=== PATIENT | male | born 1985 | race Caucasian/White ===

== ENCOUNTER 2018-09-08 21:21 | Observation (INO) | payer BC, MEDICAID ==
[~2018-09-08] VITALS: Ht 180.3 cm; Wt 124.9 kg
[~2018-09-08 21:21] MED LIST: AZIT-21 PO; ESCI20TA PO; HYDR-700 PO; LISI-552 PO; LORA0.5T PO; METO-352 PO; SULF1TAB35 PO; TRAM50TA2 PO; TRIA16.5 NS
[2018-09-08] MEDS ORDERED: NITROGLYCERIN 0.4 MG SL TABS BTL 25'S SL ONE (21:29)
[2018-09-08] MEDS ORDERED: ASPIRIN 81 MG CHEW (CHILDREN'S ASA) ONE (21:30)
[2018-09-08 21:39] LABS: BASOPHILS # (AUTO) 0.1 10^3/uL (0.0-0.1); BASOPHILS % (AUTO) 1 % (0-10); EOSINOPHILS # (AUTO) 0.2 10^3/uL (0.0-0.3); EOSINOPHILS % (AUTO) 2 % (0-10); HEMATOCRIT 39 % (40-54); HEMOGLOBIN 12.9 G/DL (13.3-17.7); LYMPHOCYTES # (AUTO) 1.8 X 10^3 (1.0-4.0); LYMPHOCYTES % (AUTO) 17 % (12-44); MEAN CORPUSCULAR HEMOGLOBIN 28 PG (25-34); MEAN CORPUSCULAR HGB CONC 33 G/DL (32-36); MEAN CORPUSCULAR VOLUME 85 FL (80-99); MEAN PLATELET VOLUME 11.4 FL (7.4-10.4); MONOCYTES # (AUTO) 0.4 X 10^3 (0.0-1.0); MONOCYTES % (AUTO) 4 % (0-12); NEUTROPHILS # (AUTO) 7.8 X 10^3 (1.8-7.8); NEUTROPHILS % (AUTO) 76 % (42-75); PLATELET COUNT 291 10^3/uL (130-400); RED CELL DISTRIBUTION WIDTH 13.8 % (10.0-14.5); WHITE BLOOD COUNT 10.3 10^3/uL (4.3-11.0)
--- NOTE | 2018-09-08 21:39 | ED Chest Pain ---
General Chief Complaint: Chest Pain Stated Complaint: CHEST/L SHOULDER/L SIDE NECK PAIN Source: patient, spouse Exam Limitations: no limitations History of Present Illness Date Seen by Provider: Sep 08, 2018 Time Seen by Provider: 21:20 Initial Comments Patient presents to ER by private conveyance with chief complaint of chest pain in his left chest radiating around his left flank into his back as well as up into his left shoulder and left neck. He describes the pain as doubling him over presently an 8 out of 10. He has not taken anything for it and came straight here. He works at [employer] and was not doing anything particular strenuous at the time. He is not short of breath having a cough fever chills nausea sweats. He says he's had a chest pain in the past about a year ago and was diagnosed with panic attacks however he says this pain is much different. Is not worse with movement or direct palpation. He does not have a history of COPD or asthma. He does not smoke cigarettes in the past 2 years however he does smoke marijuana daily and drinks 2-3 times a week usually beer. He denies ever using cocaine or methamphetamines. He says his mother had a heart attack at age 36. He has a history of diabetes diet controlled with metformin as well as a family history of diabetes high blood pressure cholesterol and heart attacks. He said his cholesterol was mildly off so they recommended fish oil but he has an allergy to fish and third diet changes he has improved his numbers. His last A1c was around 6. He denies a history of hypothyroidism. He does have hypertension and also uses escitalopram for anxiety. Uses lisinopril, metformin and metoprolol. He follows with pending sale to [facility] and recently had a change of practitioner so he does not know her name. Allergies and Home Medications Allergies Coded Allergies: Penicillins (Verified Allergy, Unknown, 03/12/12) Home Medications Lisinopril 20 Mg Tablet, 20 MG PO DAILY, (Reported) Metoprolol Succinate 50 Mg Tab.er.24h, 50 MG PO DAILY, (Reported) Sulfamethoxazole/Trimethoprim 1 Each Tablet, 1 EACH PO BID Prescribed by: LULU HAAS on 05/17/151823 Tramadol HCl 50 Mg Tablet, 50 MG PO Q4H PRN for PAIN Prescribed by: LULU HAAS on 05/17/151823 Patient Home Medication List Home Medication List Reviewed: Yes Review of Systems Review of Systems Constitutional: No chills, No diaphoresis EENTM: No Blurred Vision, No Double Vision Respiratory: Denies Cough, Denies Shortness of Air Cardiovascular: See HPI, Chest Pain, Edema (recently been not today); Denies Irregular Heart Rate, Denies Lightheadedness, Denies Palpitations, Denies Syncope Gastrointestinal: Denies Abdominal Pain, Denies Constipated, Denies Diarrhea, Denies Nausea, Denies Poor Fluid Intake Genitourinary: Denies Burning, Denies Discharge Musculoskeletal: No back pain, No joint pain Skin: No pruritus, No rash Psychiatric/Neurological: Denies Headache, Denies Numbness, Denies Paresthesia Past Yftkmpv-Jbumjv-Wdflda Hx Patient Social History Alcohol Use: Denies Use Recreational Drug Use: No Smoking Status: Current Everyday Smoker Recent Foreign Travel: No Contact w/Someone Who Travel: No Immunizations Up To Date Tetanus Booster (TDap): Less than 5yrs Past Medical History Gallbladder Asthma Hypertension Reproductive Disorders: No Sexually Transmitted Disease: No HIV/AIDS: No Hiatal Hernia Hearing Impairment: Hard of Hearing Anxiety Psoriasis Adverse Reaction/Blood Tranf: No Family Medical History No Pertinent Family Hx Physical Exam Vital Signs Vital Signs - First Documented 09/08/18 21:21 Pulse 107 Resp 18 B/P (MAP) 146/81 (102) O2 Delivery Room Air Capillary Refill : Height, Weight, BMI Height: 5'11" Weight: 260lbs. oz. 117.148411ye; 36.26 BMI Method:Stated General Appearance: WD/WN, Anxious, Mild Distress HEENT: PERRL/EOMI, Normal ENT Inspection, Pharynx Normal, Moist Mucous Membranes Neck: Full Range of Motion, Normal Inspection, Non Tender, Supple Respiratory: Chest Non Tender, Lungs Clear, Normal Breath Sounds, No Accessory Muscle Use, No Respiratory Distress Cardiovascular: Regular Rate, Rhythm, No Edema, Normal Peripheral Pulses Gastrointestinal: Normal Bowel Sounds, Non Tender, Soft Extremity: Normal Capillary Refill, Normal Inspection, Normal Range of Motion, Non Tender, No Calf Tenderness, No Pedal Edema Neurologic/Psychiatric: Alert, Oriented x3, No Motor/Sensory Deficits Skin: Normal Color, Warm/Dry Progress/Results/Core Measures Results/Orders Lab Results Laboratory Tests Test 09/08/18 21:28 09/08/18 22:35 Range/Units White Blood Count 10.3 4.3-11.0 10^3/uL Red Blood Count 4.58 4.35-5.85 10^6/uL Hemoglobin 12.9 L 13.3-17.7 G/DL Hematocrit 39 L 40-54 % Mean Corpuscular Volume 85 80-99 FL Mean Corpuscular Hemoglobin 28 25-34 PG Mean Corpuscular Hemoglobin Concent 33 32-36 G/DL Red Cell Distribution Width 13.8 10.0-14.5 % Platelet Count 291 130-400 10^3/uL Mean Platelet Volume 11.4 H 7.4-10.4 FL Neutrophils (%) (Auto) 76 H 42-75 % Lymphocytes (%) (Auto) 17 12-44 % Monocytes (%) (Auto) 4 0-12 % Eosinophils (%) (Auto) 2 0-10 % Basophils (%) (Auto) 1 0-10 % Neutrophils # (Auto) 7.8 1.8-7.8 X 10^3 Lymphocytes # (Auto) 1.8 1.0-4.0 X 10^3 Monocytes # (Auto) 0.4 0.0-1.0 X 10^3 Eosinophils # (Auto) 0.2 0.0-0.3 10^3/uL Basophils # (Auto) 0.1 0.0-0.1 10^3/uL Prothrombin Time 13.0 12.2-14.7 SEC INR Comment 1.0 0.8-1.4 Activated Partial Thromboplast Time 30 24-35 SEC D-Dimer 0.64 H 0.00-0.49 UG/ML Sodium Level 138 135-145 MMOL/L Potassium Level 3.5 L 3.6-5.0 MMOL/L Chloride Level 105 98-107 MMOL/L Carbon Dioxide Level 20 L 21-32 MMOL/L Anion Gap 13 5-14 MMOL/L Blood Urea Nitrogen 10 7-18 MG/DL Creatinine 0.93 0.60-1.30 MG/DL Estimat Glomerular Filtration Rate > 60 BUN/Creatinine Ratio 11 Glucose Level 131 H 70-105 MG/DL Calcium Level 8.8 8.5-10.1 MG/DL Corrected Calcium 8.7 8.5-10.1 MG/DL Magnesium Level 2.2 1.8-2.4 MG/DL Total Bilirubin 0.3 0.1-1.0 MG/DL Aspartate Amino Transf (AST/SGOT) 22 5-34 U/L Alanine Aminotransferase (ALT/SGPT) 19 0-55 U/L Alkaline Phosphatase 107 40-136 U/L Myoglobin 72.8 10.0-92.0 NG/ML Troponin I < 0.028 <0.028 NG/ML B-Type Natriuretic Peptide 21.7 <100.0 PG/ML Total Protein 7.4 6.4-8.2 GM/DL Albumin 4.1 3.2-4.5 GM/DL Lipase 40 8-78 U/L Urine Color YELLOW Urine Clarity CLEAR Urine pH 5 5-9 Urine Specific [place] 1.020 1.016-1.022 Urine Protein 1+ H NEGATIVE Urine Glucose (UA) NEGATIVE NEGATIVE Urine Ketones NEGATIVE NEGATIVE Urine Nitrite NEGATIVE NEGATIVE Urine Bilirubin NEGATIVE NEGATIVE Urine Urobilinogen NORMAL NORMAL MG/DL Urine Leukocyte Esterase NEGATIVE NEGATIVE Urine RBC (Auto) NEGATIVE NEGATIVE Urine RBC NONE /HPF Urine WBC RARE /HPF Urine Squamous Epithelial Cells RARE /HPF Urine Crystals NONE /LPF Urine Bacteria TRACE /HPF Urine Casts NONE /LPF Urine Mucus MODERATE H /LPF Urine Culture Indicated NO Urine Opiates Screen NEGATIVE NEGATIVE Urine Oxycodone Screen NEGATIVE NEGATIVE Urine Methadone Screen NEGATIVE NEGATIVE Urine Propoxyphene Screen NEGATIVE NEGATIVE Urine Barbiturates Screen NEGATIVE NEGATIVE Ur Tricyclic Antidepressants Screen NEGATIVE NEGATIVE Urine Phencyclidine Screen NEGATIVE NEGATIVE Urine Amphetamines Screen NEGATIVE NEGATIVE Urine Methamphetamines Screen NEGATIVE NEGATIVE Urine Benzodiazepines Screen NEGATIVE NEGATIVE Urine Cocaine Screen NEGATIVE NEGATIVE Urine Cannabinoids Screen POSITIVE H NEGATIVE My Orders Orders - SELENA,ALY J Ekg Tracing (09/08/18 21:24) Continuous Ekg Monitoring (09/08/18 21:24) Cbc With Automated Diff (09/08/18 21:32) Magnesium (09/08/18 21:32) Chest 1 View, Ap/Pa Only (09/08/18 21:32) Cardiac Profile 1 (09/08/18 21:32) Comprehensive Metabolic Panel (09/08/18 21:32) Myoglobin Serum (09/08/18 21:32) Protime With Inr (09/08/18 21:32) Partial Thromboplastin Time (09/08/18 21:32) O2 (09/08/18 21:32) Lipid Panel (09/09/18 06:00) Ed Iv/Invasive Line Start (09/08/18 21:32) Lipase (09/08/18 21:32) BNP (09/08/18 21:32) Fibrin Degradation Products (09/08/18 21:32) Nitroglycerin 0.4 Mg Btl 25's (Nitrostat (09/08/18 21:45) Aspirin Chewable Tablet (Baby Aspirin Ch (09/08/18 21:45) Nitroglycerin 0.4 Mg Btl 25's (Nitrostat (09/08/18 21:29) Aspirin Chewable Tablet (Baby Aspirin Ch (09/08/18 21:30) Ua Culture If Indicated (09/08/18 21:45) Drug Screen Stat (Urine) (09/08/18 21:45) Ct Angio Chest W (09/08/18 22:32) Ed Iv/Invasive Line Start (09/08/18 22:32) Ns Iv 1000 Ml (Sodium Chloride 0.9%) (09/08/18 22:32) Iohexol Injection (Omnipaque 350 Mg/Ml 1 (09/08/18 23:15) Received Contrast (Hold Metformin- Contr (09/08/18 23:15) Ns (Ivpb) (Sodium Chloride 0.9% Ivpb Bag (09/08/18 23:15) Medications Given in ED Current Medications Medications Dose Ordered Sig/Katherine Route Start Time Stop Time Status Last Admin Dose Admin Aspirin 324 mg ONCE ONCE PO 09/08/18 21:45 09/08/18 21:46 DC 09/08/18 21:34 324 MG Iohexol 150 ml ONCE ONCE IV 09/08/18 23:15 09/08/18 23:16 DC 09/08/18 23:10 125 ML Nitroglycerin 0.4 mg UD PRN SL 09/08/18 21:45 09/08/18 21:36 0.4 MG Sodium Chloride 100 ml ONCE ONCE IV 09/08/18 23:15 09/08/18 23:16 DC 09/08/18 23:10 80 ML Vital Signs/I&O 09/08/18 09/08/18 21:21 21:21 Pulse 107 Resp 18 B/P (MAP) 146/81 (102) O2 Delivery Room Air Progress Progress Note #1: Time: 21:41 Progress Note Initial blood pressure is 130 systolic and after a syncopal dose of nitroglycerin he says he can breathe better and his pain is significantly decreased. He feels more relaxed. EKG is non-diagnostic. He has a concerning family history and risk factors of smoking, hypertension, hyperlipidemia, diabetes. Plan urine drug screen. Echocardiogram by Dr. Lemus January 2015. Normal ventricular size and systolic function. EF of 60%. Slightly prominent left atrium. ED ACS 17 points. Not low risk. This patient is not a candidate for early discharge and should receive a standard chest pain evaluation with delayed troponin testing. Progress Note #2: Time: 22:33 Progress Note Single dose of nitroglycerin almost completely took his chest pain away. He was feeling some gas pain in the middle of his chest he said like a gas bubble in his throat. We'll get a CT angiogram since his d-dimer failed to rule out pulmonary embolism and we may offer him a GI cocktail if this esophageal discomfort persists. Initial ECG Impression Date: Sep 08, 2018 Initial ECG Impression Time: 21:26 Initial ECG Rate: 100 Initial ECG Rhythm: S.Tach Initial ECG Intervals: Normal Initial ECG Impression: Normal, Nonspecific Changes Comment No clinically significant ST elevation or depression. Diagnostic Imaging Diagonstic Imaging: Xray Plain Films/CT/US/NM/MRI: chest (1v) Comments NAME: GAMAL HARGROVE [facility] REC#: [id number] PHYSICIAN: ALY WALTERS MD CC: MARTIN DENNEY MD; ALY WALTERS Page 1 of 1 RADIOLOGY REPORT [facility] [place] CC: MARTIN DENNEY MD; ALY WALTERS Page 1 of 1 RADIOLOGY REPORT NAME: GAMAL HARGROVE [facility] REC#: [id number] PT STATUS: REG ER : 1985 PHYSICIAN: ALY WALTERS MD ADMIT DATE: 09/08/18/ER Signed Date of Exam: 09/08/18 CHEST 1 VIEW, AP/PA ONLY INDICATION: Left upper chest pain for the last couple of hours. COMPARISON STUDY: Chest from 2015. FINDINGS: Frontal view of the chest demonstrates the lungs to be clear. The heart, mediastinum, pulmonary vascularity and visualized bony thorax are normal. IMPRESSION: Normal portable chest. Dictated by: Dictated on workstation # [id number] Dict: 09/08/182146 Trans: 09/08/182199 Interpreted by: MARTIN DENNEY MD Electronically signed by: MARTIN DENNEY MD 09/08/182199 Reviewed: Reviewed by Me Diagonstic Imaging: CT (angiogram) Plain Films/CT/US/NM/MRI: chest Comments Negative for pulmonary embolism infiltrate or mass. No aortic aneurysm. Left renal stone. Reviewed: Reviewed by Me Departure Communication (Admissions) Time/Spoke to Admitting Phy: 00:15 Dr Arzate agrees to observe. Time/Spoke to Consulting Phy: 00:10 Dr Clayton; Agrees to consult, continue metoprolol and ASA. Impression Primary Impression: Left-sided chest pain Disposition: ADMITTED INPATIENT Condition: Stable Admissions Decision to Admit Reason: Admit from ER (General) Decision to Admit/Date: Sep 08, 2018 Time/Decision to Admit Time: 21:45 Departure-Patient Inst. Referrals: [facility] (PCP/Family) Primary Care Physician ALY WALTERS Sep 08, 2018 21:39
[2018-09-08] MEDS ORDERED: NITROGLYCERIN 0.4 MG SL TABS BTL 25'S SL PRN (21:45)
[2018-09-08] MEDS ORDERED: ASPIRIN 81 MG CHEW (CHILDREN'S ASA) PO ONE (21:45)
--- NOTE | 2018-09-08 21:52 | Diagnostic Imaging Report ---
INDICATION: Left upper chest pain for the last couple of hours. COMPARISON STUDY: Chest from 2015. FINDINGS: Frontal view of the chest demonstrates the lungs to be clear. The heart, mediastinum, pulmonary vascularity and visualized bony thorax are normal. IMPRESSION: Normal portable chest. Dictated by: Dictated on workstation # [id number]
[2018-09-08 21:59] LABS: ALANINE AMINOTRANSFERASE 19 U/L (0-55); ALBUMIN 4.1 GM/DL (3.2-4.5); ALKALINE PHOSPHATASE 107 U/L (40-136); BILIRUBIN,TOTAL 0.3 MG/DL (0.1-1.0); BUN/CREATININE RATIO 11; CALCIUM 8.8 MG/DL (8.5-10.1); CARBON DIOXIDE 20 MMOL/L (21-32); CHLORIDE 105 MMOL/L (98-107); CREATININE SERUM 0.93 MG/DL (0.60-1.30); GFR ESTIMATED > 60; GLUCOSE 131 MG/DL (70-105); LIPASE 40 U/L (8-78); MAGNESIUM 2.2 MG/DL (1.8-2.4); POTASSIUM 3.5 MMOL/L (3.6-5.0); SODIUM 138 MMOL/L (135-145); TOTAL PROTEIN 7.4 GM/DL (6.4-8.2)
[2018-09-08] MEDS ORDERED: NS IV 1000 ML 1,000 ML IV SCH (22:32)
[2018-09-08 22:41] LABS: BILIRUBIN,URINE NEGATIVE (NEGATIVE); CLARITY,URINE CLEAR; GLUCOSE, URINE (UA) NEGATIVE (NEGATIVE); KETONES,URINE NEGATIVE (NEGATIVE); LEUKOCYTE ESTERASE ,URINE NEGATIVE (NEGATIVE); NITRITE,URINE NEGATIVE (NEGATIVE); PH,URINE 5 (5-9); PROTEIN,URINE 1+ (NEGATIVE); UROBILINOGEN,URINE NORMAL (NORMAL)
[2018-09-08 22:47] LABS: COLOR,URINE YELLOW
[2018-09-08 22:48] LABS: BACTERIA,URINE TRACE /HPF; SQUAMOUS EPITHELIAL CELL,UR RARE /HPF; WBC,URINE RARE /HPF
[2018-09-08 22:54] LABS: AMPHETAMINE SCREEN, URINE NEGATIVE (NEGATIVE); BARBITURATE SCREEN URINE NEGATIVE (NEGATIVE); BENZODIAZEPINES SCREEN URINE NEGATIVE (NEGATIVE); CANNABINOID SCREEN, URINE POSITIVE (NEGATIVE); COCAINE SCREEN URINE NEGATIVE (NEGATIVE); METHADONE STAT NEGATIVE (NEGATIVE); METHAMPHETAMINE SCREEN URINE S NEGATIVE (NEGATIVE); OPIATE SCREEN URINE NEGATIVE (NEGATIVE); OXYCODONE STAT NEGATIVE (NEGATIVE); PROPOXYPHENE STAT NEGATIVE (NEGATIVE); TRICYCLIC ANTIDEPRESSANTS SCRE NEGATIVE (NEGATIVE)
[2018-09-08] MEDS ORDERED: HOLD METFORMIN - RECEIVED CONTRAST 20 ML VIAL IV SCH (23:15)
[2018-09-08] MEDS ORDERED: NS 100 ML (IVPB) BAG IV ONE (23:15)
[2018-09-08] MEDS ORDERED: IOHEXOL 350 MG/ML 150 ML (OMNIPAQUE 350) VIAL IV ONE (23:15)
[2018-09-09] VITALS (10 sets, daily range): BP systolic 120–145; BP diastolic 64–87
--- NOTE | 2018-09-09 01:00 | NUR ---
GAMAL HARGROVE admitted to room 418-1, with an admitting diagnosis of CHEST PAIN R/O ACS, on 09/09/18 from ER VIA WHEELCHAIR, accompanied by STAFF.GAMAL HARGROVE introduced to surroundings, call light, bed controls, phone, TV, temperature control, lights, meal times, smoking policy, visitor policy, side rail policy, bathrooms and showers. Patient Rights given to patient in the handbook.GAMAL HARGROVE verbalizes understanding that [facility] is not responsible for the loss or damage to any personal effects or valuables that are kept in the patients posession during their hospitalization.
[2018-09-09] MEDS ORDERED: NITROGLYCERIN 0.4 MG SL TABS BTL 25'S SL PRN (01:15)
[2018-09-09] MEDS ORDERED: PATIENT MAY USE OWN MEDS, ALL PO SCH (01:15)
[2018-09-09] MEDS ORDERED: CATHETER FLUSH 10 ML SYR IV PRN (01:15)
[2018-09-09] MEDS ORDERED: morphine INJ 4 MG/ML 1 ML (VIAL/SYRINGE) IV PRN (01:15)
[2018-09-09] MEDS: CATHETER FLUSH 10 ML SYR IV SCH ×2 (05:03→14:55)
--- NOTE | 2018-09-09 06:16 | Diagnostic Imaging Report ---
PROCEDURE: CT angiography of the chest with contrast. TECHNIQUE: Multiple contiguous axial images were obtained through the chest after uneventful bolus administration of intravenous contrast. 2D reconstructed CTA MIP acquisitions were also performed. Auto Exposure Controls were utilized during the CT exam to meet ALARA standards for radiation dose reduction. Indication: Upper left chest pain for 2 hours. Comparison: None. Discussion: No pulmonary embolus is identified. No focal consolidation. Normal heart size. No pleural or pericardial fluid. No pathologically enlarged lymph nodes identified. The gallbladder surgically absent. A 2 mm nonobstructing left renal calculus. No osseous abnormality. The thoracic aorta is normal in caliber and configuration. Pulmonary arteries are not dilated. Impression: 1. No pulmonary embolus or other acute abnormality identified within the chest. 2. Nonobstructing punctate left renal calculus. 3. Agree with preliminary report. Dictated by: Dictated on workstation # [id number]
[2018-09-09 08:29] LABS: TRIGLYCERIDES 353 MG/DL (<150)
[2018-09-09 08:30] LABS: CHOLESTEROL 121 MG/DL (< 200); HDL CHOLESTEROL 20 MG/DL (40-60); VLDL CHOLESTEROL 71 MG/DL (5-40)
[2018-09-09] MEDS ORDERED: meTOprolol TARTRATE 50 MG (LOPRESSOR) TAB PO SCH (09:00)
[2018-09-09] MEDS ORDERED: lisINopril 20 MG (PRINIVIL) TABLET PO SCH (09:00)
[2018-09-09] MEDS ORDERED: ASPIRIN E.C. 81 MG (ECOTRIN) TAB PO SCH (09:00)
[2018-09-09] MEDS ORDERED: PATIENT MAY USE OWN MEDS, ALL MC SCH (09:45)
[2018-09-09] MEDS ORDERED: ESCITALOPRAM 20 MG (LEXAPRO) TABLET PO SCH (10:15)
--- NOTE | 2018-09-09 12:37 | Short Stay Summary-Hospitalist ---
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 His family history is significant for a mother having an UT at 36 years old. He denied any significant additional chest pain and cardiology has been consulted. He was noted to have decreased oxygen saturation at night when spot checked when taken vitals per nursing staff and I have consulted Dr. Davis and home O2 evaluation was performed the patient did not require any home oxygen at this time but does need a sleep study as an outpatient since he appears to be high risk for that. All cardiac enzymes were negative and patient will have a close follow-up with cardiology to complete the work-up for chest pain. Source: patient, family, RN/MD Exam Limitations: no limitations Date Seen 09/09/18 Time Seen by a Provider: 10:30 Attending Physician Cayla Arzate DO [facility] [place] Referring Physician Date of Admission Sep 09, 2018 at 00:20 Home Medications & Allergies Home Medications Reviewed patient Home Medication Reconciliation performed by pharmacy medication reconciliations aviation electronics technician and/or nursing. Patients Allergies have been reviewed. Allergies Allergies Coded Allergies Penicillins (Verified Allergy, Unknown, 03/12/12) Past Cltdbpc-Nxtrog-Jrpjvr Hx Past Med/Social Hx: Reviewed Nursing Past Med/Soc Hx, Reviewed and Corrections made Patient Social History Marrital Status: Employed/Student: employed ([employer]) Alcohol Use: Denies Use Recreational Drug Use: No Drug of Choice: MARIJUANA Smoking Status: Current Everyday Smoker Type Used: Cigarettes Recent Foreign Travel: No Contact w/other who traveled: No Recent Hopitalizations: No Recent Infectious Disease Expo: No Immunizations Up To Date Tetanus Booster (TDap): Less than 5yrs Seasonal Allergies Seasonal Allergies: No Past Medical History Surgeries: Gallbladder Cardiac: High Cholesterol, Hypertension Reproductive: No Sexually Transmitted Disease: No HIV/AIDS: No Gastrointestinal: Hiatal Hernia Endocrine: Diabetes, Non-Insulin dep Hearing Impairment: Hard of Hearing Psychosocial: Anxiety Skin/Integumentary: Psoriasis History of Blood Disorders: No Adverse Reaction to Blood [place]: No Family History No Pertinent Family Hx Review of Systems Constitutional: see HPI EENTM: no symptoms reported Respiratory: no symptoms reported Cardiovascular: chest pain Physical Exam Physical Exam Vital Signs Vital Signs - First Documented 09/08/18 09/09/18 21:21 07:00 Pulse 107 Resp 18 B/P (MAP) 146/81 (102) O2 Delivery Room Air O2 Flow Rate 1.00 Capillary Refill : Less Than 3 Seconds Height, Weight, BMI Height: 5'11.00" Weight: 275lbs. 6.0oz. 124.921147zy; 38.4 BMI Method:Stated General Appearance: No Apparent Distress, WD/WN, Anxious, Chronically ill, Obese HEENT: PERRL/EOMI, Normal ENT Inspection, Pharynx Normal, Moist Mucous Membranes Neck: Full Range of Motion, Normal Inspection, Non Tender, Supple Respiratory: Chest Non Tender, Lungs Clear, Normal Breath Sounds, No Accessory Muscle Use, No Respiratory Distress Cardiovascular: Regular Rate, Rhythm, No Edema, Normal Peripheral Pulses Gastrointestinal: Normal Bowel Sounds, Non Tender, Soft Extremity: Normal Capillary Refill, Normal Inspection, Normal Range of Motion, Non Tender, No Calf Tenderness, No Pedal Edema Neurologic/Psychiatric: Alert, Oriented x3, No Motor/Sensory Deficits Skin: Normal Color, Warm/Dry Results Results/Procedures Labs Laboratory Tests 09/08/18 21:28 Patient resulted labs reviewed. Short Stay Diagnosis Discharge Diagnosis-Short Stay Admission Diagnosis Assessment: Chest pain ruled out acute coronary syndrome needs close follow-up with cardiology to complete work-up Suspected obstructive sleep apnea with desaturations at night when spot checked Obesity Hypertension Hyperlipidemia Hypokalemia Former smoker Final Discharge Diagnosis Assessment: Chest pain ruled out acute coronary syndrome needs close follow-up with cardiology to complete work-up Suspected obstructive sleep apnea with desaturations at night when spot checked Obesity Hypertension Hyperlipidemia Hypokalemia Former smoker Conclusion Plan Plan: VT home Needs sleep study and completed ACS w/u Diagnosis/Problems Diagnosis/Problems (1) Chest pain, rule out acute myocardial infarction Status: Acute (2) Obesity (BMI 30-39.9) Status: Chronic (3) Hypertension Status: Chronic Qualifiers: Qualified Codes: I10 - Essential (primary) hypertension (4) Diabetes mellitus Status: Chronic Qualifiers: Qualified Codes: E11.9 - Type 2 diabetes mellitus without complications (5) Former smoker Status: Chronic (6) Other hyperlipidemia Status: Chronic Clinical Quality Measures AMI/AHF: ASA po Prior to arrival: No DVT/VTE Risk/Contraindication: Risk Factor Score Per Nursin RFS Level Per Nursing on Admit: 2=Moderate CAYLA ARZATE DO Sep 09, 2018 12:37
[2018-09-09] MEDS ORDERED: KCL 20 MEQ TAB (K-DUR) PO ONE (14:00)
[2018-09-09] MEDS ORDERED: ATOR20TA66 PO (14:01)
--- NOTE | 2018-09-09 14:14 | Consultation-Cardiology ---
HPI-Cardiology Cardiology Consultation: Date of Consultation 09/09/18 Time Seen by a Provider: 13:40 Date of Admission Attending Physician Cayla Arzate DO Admitting Physician [facility] Consulting Physician BERTA MCMILLAN MD, MA, FACP, FACC, [facility], CCDS Physician requesting consult: Dr Arzate HPI: Chief Complaint: CC: Chest discomfort HPI [address] to Dr Arzate on 09/08/18 with chest discomfort: first episode, none previously, felt in L upper chest, some radiation to back of neck, no corre lation with exertion, sharp to dull, mild to mod, associated with a feeling of panic, lasted a few hours, has resolved, has not recurred. Chronic, mild shortness of breath Chronic panic and anxiety disorder No palp or syncope No leg swelling Review of Systems-Cardiology Review of Systems Constitutional: malaise; No weight loss, No weight gain Eyes: No vision change Ears/Nose/Throat: No ear discharge, No nasal drainage, No recent hearing loss Respiratory: As described under HPI Cardiovascular: As described under HPI Gastrointestinal: No constipation, No diarrhea, No nausea Genitourinary: No dysuria, No hematuria, No urine frequency changes Musculoskeletal: No back pain, No joint pain Skin: No rash, No ulcerations Psychiatric/Neurological: No seizure, No focal weakness, No syncope Hematologic: No bleeding abnormalities COS-Gqolgm-Lgitzg Hx Patient Social History Alcohol Use: Denies Use Recreational Drug Use: No Drug of Choice: MARIJUANA Smoking Status: Current Everyday Smoker Type Used: Cigarettes Recent Foreign Travel: No Recent Infectious Disease Expo: No Hospitalization with Isolation: Denies Immunizations Up To Date Tetanus Booster (TDap): Less than 5yrs Past Medical History PMH As described under Assessment. Family Medical History Family Medical History: Reports mother had DC at age 36 Allergies and Home Medications Allergies Coded Allergies: Penicillins (Verified Allergy, Unknown, 03/12/12) Home Medications Atorvastatin Calcium 20 Mg Tablet, 20 MG PO DAILY Prescribed by: BERTA MCMILLAN on 09/09/18 1401 Lisinopril 20 Mg Tablet, 20 MG PO DAILY, (Reported) Metoprolol Succinate 50 Mg Tab.er.24h, 50 MG PO DAILY, (Reported) Sulfamethoxazole/Trimethoprim 1 Each Tablet, 1 EACH PO BID Prescribed by: LULU HAAS on 05/17/15 1824 Tramadol HCl 50 Mg Tablet, 50 MG PO Q4H PRN for PAIN Prescribed by: LULU HAAS on 05/17/15 0151 Patient Home Medication List Home Medication List Reviewed: Yes Physical Exam-Cardiology Physical Exam Vital Signs/I&O 09/09/18 09/09/18 09/09/18 09/09/18 02:08 03:00 04:00 05:00 Temp 99.1 Pulse 83 88 76 77 Resp 18 18 18 B/P (MAP) 133/76 (95) 145/76 (99) 120/64 (82) Pulse Ox 92 89 O2 Delivery Room Air Room Air Room Air 09/09/18 09/09/18 09/09/18 09/09/18 06:00 07:00 08:00 08:00 Temp 99.4 Pulse 78 70 74 Resp 18 20 B/P (MAP) 129/72 (91) 123/77 (92) Pulse Ox 5 96 96 O2 Delivery Room Air Room Air Room Air 09/09/18 09/09/18 12:00 13:00 Temp 98.8 Pulse 62 62 Resp 20 B/P (MAP) 142/87 (105) Pulse Ox 97 O2 Delivery Room Air 09/09/18 00:00 Intake Total 1000 ml Balance 1000 ml Capillary Refill : Less Than 3 SecondsLess Than 3 Seconds Constitutional: AAO x 3, well-developed, well-nourished HEENT: EOMI, hearing is well preserved; No xanthelasmas are seen Neck: carotid pulses are 2 + bilaterally, with good upstrokes Respiratory: No accessory muscle use; lungs clear to percussion, lungs clear to auscultation Cardiovascular: regular rate-rhythm, S1 and S2 Gastrointestinal: No tender; soft; No guarding, No rebound; audible bowel sounds Extremities: No clubbing, No cyanosis, No significant edema Neurologic/Psychiatric: oriented x 3, other (moves all limbs equally) Skin: No rash on exposed areas, No ulcerations on exposed areas Data Review Labs Laboratory Tests 09/08/18 21:28: White Blood Count 10.3, Red Blood Count 4.58, Hemoglobin 12.9L, Hematocrit 39L, Mean Corpuscular Volume 85, Mean Corpuscular Hemoglobin 28, Mean Corpuscular Hemoglobin Concent 33, Red Cell Distribution Width 13.8, Platelet Count 291, Mean Platelet Volume 11.4H, Neutrophils (%) (Auto) 76H, Lymphocytes (%) (Auto) 17, Monocytes (%) (Auto) 4, Eosinophils (%) (Auto) 2, Basophils (%) (Auto) 1, Neutrophils # (Auto) 7.8, Lymphocytes # (Auto) 1.8, Monocytes # (Auto) 0.4, Eosinophils # (Auto) 0.2, Basophils # (Auto) 0.1, Prothrombin Time 13.0, INR Comment 1.0, Activated Partial Thromboplast Time 30, D-Dimer 0.64H, Sodium Level 138, Potassium Level 3.5L, Chloride Level 105, Carbon Dioxide Level 20L, Anion Gap 13, Blood Urea Nitrogen 10, Creatinine 0.93, Estimat Glomerular Filtration Rate > 60, BUN/Creatinine Ratio 11, Glucose Level 131H, Calcium Level 8.8, Corrected Calcium 8.7, Magnesium Level 2.2, Total Bilirubin 0.3, Aspartate Amino Transf (AST/SGOT) 22, Alanine Aminotransferase (ALT/SGPT) 19, Alkaline Phosphatase 107, Myoglobin 72.8, Troponin I < 0.028, B-Type Natriuretic Peptide 21.7, Total Protein 7.4, Albumin 4.1, Lipase 40 09/08/18 22:35: Urine Color YELLOW, Urine Clarity CLEAR, Urine pH 5, Urine Specific [place] 1.020, Urine Protein 1+H, Urine Glucose (UA) NEGATIVE, Urine Ketones NEGATIVE, Urine Nitrite NEGATIVE, Urine Bilirubin NEGATIVE, Urine Urobilinogen NORMAL, Urine Leukocyte Esterase NEGATIVE, Urine RBC (Auto) NEGATIVE, Urine RBC NONE, Urine WBC RARE, Urine Squamous Epithelial Cells RARE, Urine Crystals NONE, Urine Bacteria TRACE, Urine Casts NONE, Urine Mucus MODERATEH, Urine Culture Indicated NO, Urine Opiates Screen NEGATIVE, Urine Oxycodone Screen NEGATIVE, Urine Methadone Screen NEGATIVE, Urine Propoxyphene Screen NEGATIVE, Urine Barbiturates Screen NEGATIVE, Ur Tricyclic Antidepressants Screen NEGATIVE, Urine Phencyclidine Screen NEGATIVE, Urine Amphetamines Screen NEGATIVE, Urine Methamphetamines Screen NEGATIVE, Urine Benzodiazepines Screen NEGATIVE, Urine Cocaine Screen NEGATIVE, Urine Cannabinoids Screen POSITIVEH 09/09/18 02:01: Troponin I < 0.028 09/09/18 05:30: Glucometer 116H 09/09/18 08:05: Troponin I < 0.028, Triglycerides Level 353H, Cholesterol Level 121, LDL Cholesterol Direct 44, VLDL Cholesterol 71H, HDL Cholesterol 20L 09/09/18 11:01: Glucometer 100 Laboratory Tests 09/08/18 21:28 A/P-Cardiology Assessment/Admission Diagnosis Nonspecific chest discomfort, etiology undetermined, no evidence of ACS Borderline DM II, by history Borderline hypertension, by history Hyperlipidemia, mostly hypertriglyceridemia Obesity with BMI 38 Quit smoking in 2011 Discussion and Recomendations * Ok to d/c because no evidence of ACS and because he wishes to go home * Cor risk stratification as an outpt (given multiple coronary risk factors) * Supplemental K because K somewhat low at presentation * Add atorvastatin for hyperlipidemia. Pros and cons of statin therapy reviewed with him. Advised f/u lab work in 4-6 weeks and outpt f/u * Advised to continue to refrain from tobacco use * Advised efforts at wgt loss * He understands all of the above and states he will comply Clinical Quality Measures AMI/AHF: ASA po Prior to arrival: No DVT/VTE Risk/Contraindication: Risk Factor Score Per Nursin RFS Level Per Nursing on Admit: 2=Moderate BERTA MCMILLAN MD FACP FACC CCDS Sep 09, 2018 14:14
--- NOTE | 2018-09-09 16:58 | NUR ---
Patient was on RA for over 60 mins and then O2 sat was checked and patient was at 97%; Patient stood up and was still 97% and walked for 6 mins and did not drop below 98% during the 6 mins walk. Patient is not requiring O2 at rest or on exertion at this time
[2018-09-09] MEDS ORDERED: ATORVASTATIN 40 MG (LIPITOR) TABLET PO SCH (21:00)
== END 2018-09-09 17:25 | disposition home or self-care (01) ==
LOC: EDUNIT# 21:21 → ER 21:21 → 4TH 09-09 00:20
PROVIDERS: ADMIT Internal Medicine; ATTEND Internal Medicine
DX: R07.9 Chest pain, unspecified (principal); E11.9 Type 2 diabetes mellitus without complications; E78.5 Hyperlipidemia, unspecified; E78.1 Pure hyperglyceridemia; E66.9 Obesity, unspecified; Z68.38 Body mass index [BMI] 38.0-38.9, adult; I10 Essential (primary) hypertension; E78.00 Pure hypercholesterolemia, unspecified; H91.90 Unspecified hearing loss, unspecified ear; F41.9 Anxiety disorder, unspecified; L40.9 Psoriasis, unspecified; E87.6 Hypokalemia; Z87.891 Personal history of nicotine dependence; Z79.84 Long term (current) use of oral hypoglycemic drugs; Z82.49 Family history of ischemic heart disease and other diseases of the circulatory system
CPT/HCPCS: 36415; 71045; 71275; 80053; 80061; 80306; 81000; 82962; 83690; 83735; 83874; 83880; 84484; 85025; 85379; 85610; 85730; 93005; 94761; 96360; G0378

== ENCOUNTER → 2018-09-11 | Outpatient (CLI) | payer BC ==
[~2018-09-11] MED LIST changes: +ATOR20TA66 PO; +CATHETER FLUSH 10 ML SYR IV PRN
[2018-09-11 09:09] VITALS: BP 137/80
[2018-09-11 09:13] VITALS: BP 142/71
--- NOTE | 2018-09-12 02:39 | STRESS TEST ---
DATE OF SERVICE: 09/11/2018 RESTING AND POST EXERCISE TECHNETIUM-99M TETROFOSMIN SPECT CT IMAGING ORDERING PHYSICIAN: Dr. Clayton. PRIMARY PHYSICIAN: [facility]. CLINICAL DIAGNOSIS: Chest pain. Baseline images were carried out after injection of 10.35 mCi of technetium-99m Tetrofosmin. Subsequently, exercise was carried out on a treadmill. Lauri protocol was employed. Heart rate response to exercise was normal. Blood pressure response to exercise was hypertensive. There was considerable baseline artifact with exercise. There did not appear to be significant ST segment deviation in the immediate recovery phase. The patient exercised for a total of 10 minutes and 30 seconds on the Lauri protocol. He attained 11.5 METS of workload and 86% of maximum predicted heart rate. After he had indicated that he would not be able for go for more than another minute, 29.7 mCi of technetium-99m Tetrofosmin were injected and the exercise was continued for another minute. He did not report chest discomfort. Exercise was stopped on account of fatigue. Review of images at rest and following stress does not indicate any significant perfusion defects consistent with significant myocardial ischemia or infarction. Gated images show normal global left ventricular systolic function with normal regional wall motion. Left ventricular ejection fraction is calculated to be 61%. TID is absent (1.03). CONCLUSIONS: 1. No evidence of any significant myocardial ischemia or infarction on this study. 2. Normal regional wall motion. 3. Normal global left ventricular systolic function with an ejection fraction of 61%. 4. Hypertensive response to exercise. Job ID: [id number] DocumentID: [id number] Dictated Date: 09/11/2018 21:46:38 Cmo & President Date: 09/12/2018 02:38:53 Dictated By: BERTA CLAYTON MD, MA, FACP, FACC,
== END ==
LOC: CARD 07:33
PROVIDERS: ATTEND Internal Medicine
DX: R07.9 Chest pain, unspecified (principal); R03.0 Elevated blood-pressure reading, without diagnosis of hypertension
CPT/HCPCS: 78452; 93017; 93306

== ENCOUNTER → 2018-09-25 | Outpatient (CLI) | payer BC ==
[~2018-09-25] MED LIST changes: -CATHETER FLUSH 10 ML SYR IV PRN
[2018-09-25 09:39] LABS: ABG BASE EXCESS 0.1 MMOL/L (-2.5-2.5); ABG OXYGEN SATURATION 98 % (94-100); ABG PCO2 40 MMHG (35-45); ABG PO2 89 MMHG (79-93); ABG TCO2 25.7 MMOL/L (21.0-31.0)
[2018-09-25 09:41] LABS: ALLENS TEST YES-POS; INSPIRED O2 ROOM AIR; PATIENT TEMP 97.3; VENTILATOR NO
== END ==
LOC: LAB 09:11
PROVIDERS: ATTEND Nurse Practitioner Family
DX: J30.9 Allergic rhinitis, unspecified (principal); G47.50 Parasomnia, unspecified; G47.10 Hypersomnia, unspecified; R06.83 Snoring
CPT/HCPCS: 36600; 82805

== ENCOUNTER 2019-01-08 05:22 | Emergency (ER) | payer BC ==
[~2019-01-08] VITALS: Ht 180.3 cm; Wt 112.6 kg
[2019-01-08 06:32] LABS: BASOPHILS # (AUTO) 0.1 10^3/uL (0.0-0.1); BASOPHILS % (AUTO) 1 % (0-10); EOSINOPHILS # (AUTO) 0.3 10^3/uL (0.0-0.3); EOSINOPHILS % (AUTO) 3 % (0-10); HEMATOCRIT 41 % (40-54); HEMOGLOBIN 13.7 G/DL (13.3-17.7); LYMPHOCYTES # (AUTO) 3.7 X 10^3 (1.0-4.0); LYMPHOCYTES % (AUTO) 39 % (12-44); MEAN CORPUSCULAR HEMOGLOBIN 28 PG (25-34); MEAN CORPUSCULAR HGB CONC 33 G/DL (32-36); MEAN CORPUSCULAR VOLUME 83 FL (80-99); MEAN PLATELET VOLUME 12.3 FL (7.4-10.4); MONOCYTES # (AUTO) 0.7 X 10^3 (0.0-1.0); MONOCYTES % (AUTO) 7 % (0-12); NEUTROPHILS # (AUTO) 4.8 X 10^3 (1.8-7.8); NEUTROPHILS % (AUTO) 50 % (42-75); PLATELET COUNT 269 10^3/uL (130-400); RED CELL DISTRIBUTION WIDTH 13.7 % (10.0-14.5); WHITE BLOOD COUNT 9.5 10^3/uL (4.3-11.0)
[2019-01-08 06:33] LABS: BILIRUBIN,URINE NEGATIVE (NEGATIVE); CLARITY,URINE CLEAR; COLOR,URINE YELLOW; GLUCOSE, URINE (UA) NEGATIVE (NEGATIVE); KETONES,URINE NEGATIVE (NEGATIVE); LEUKOCYTE ESTERASE ,URINE 1+ (NEGATIVE); NITRITE,URINE NEGATIVE (NEGATIVE); PH,URINE 6.5 (5-9); PROTEIN,URINE NEGATIVE (NEGATIVE)
--- NOTE | 2019-01-08 06:33 | ED Abdominal Pain ---
General Chief Complaint: Abdominal/GI Problems Stated Complaint: ABD PAIN, VOMITING, TOOTH PAIN Nursing Triage Note: AMBULATORY TO ED ROOM 6 WITH C/O ABD PAIN, N/V/D FOR SEVERAL DAYS. ALSO C/O TOOTH PAIN. Sepsis Screen: No Definite Risk Source of Information: Patient, Family History of Present Illness Date Seen by Provider: Jan 08, 2019 Time Seen by Provider: 06:29 Initial Comments -year-old white male complaining of epigastric pain for 6 months. The patient was placed on omeprazole at counts include [facility] beds at the [facility] several weeks ago without improvement. The patient states that he has taken ibuprofen in significant amounts for years. He states that he has had black and tarry stools. He states that his epigastric pain is associated with nausea and vomiting. He has noted blood in his emesis. Patient denies associated easy bruising, fever or chill, dysuria or hematuria. The patient's past medical history is significant in that he was placed on metfo rmin for diabetes, atorvastatin for elevated lipids, and has a family history for heart disease, diabetes, and hypertension. Allergies and Home Medications Allergies Coded Allergies: Penicillins (Verified Allergy, Unknown, 03/12/12) Home Medications Atorvastatin Calcium 20 Mg Tablet, 20 MG PO DAILY Prescribed by: BERTA MCMILLAN on 09/09/18 1401 Lisinopril 20 Mg Tablet, 20 MG PO DAILY, (Reported) Metoprolol Succinate 50 Mg Tab.er.24h, 50 MG PO DAILY, (Reported) Tramadol HCl 50 Mg Tablet, 50 MG PO Q4H PRN for PAIN Prescribed by: LULU HAAS on 05/17/15 7034 Patient Home Medication List Home Medication List Reviewed: Yes Review of Systems Review of Systems Constitutional: No chills, No fever EENTM: No Symptoms Reported Respiratory: Denies Cough Cardiovascular: Denies Chest Pain Gastrointestinal: See HPI, Abdominal Pain, Nausea, Vomiting, Other (black tarry stools) Genitourinary: No Symptoms Reported Musculoskeletal: no symptoms reported Skin: no symptoms reported Psychiatric/Neurological: No Symptoms Reported Endocrine: No Symptoms Reported Hematologic/Lymphatic: No Symptoms Reported Past Krpuyry-Uthgrg-Whmkrc Hx Past Med/Social Hx: Reviewed Nursing Past Med/Soc Hx Patient Social History Alcohol Use: Regular Use Recreational Drug Use: Yes Drug of Choice: MARIJUANA Smoking Status: Former Smoker Type Used: Cigarettes Recent Foreign Travel: No Contact w/Someone Who Travel: No Recent Infectious Disease Expo: No Recent Hopitalizations: No Physical Abuse: No Sexual Abuse: No Mistreated: No Fear: No Immunizations Up To Date Tetanus Booster (TDap): Less than 5yrs Seasonal Allergies Seasonal Allergies: No Past Medical History Surgeries: Yes Gallbladder Respiratory: Yes Asthma Cardiac: Yes High Cholesterol, Hypertension Neurological: No Reproductive Disorders: No Sexually Transmitted Disease: No HIV/AIDS: No Genitourinary: No Gastrointestinal: Yes Hiatal Hernia Musculoskeletal: No Endocrine: Yes Diabetes, Non-Insulin dep HEENT: No Hearing Impairment: Hard of Hearing Cancer: No Psychosocial: Yes Anxiety Integumentary: No Psoriasis Blood Disorders: No Adverse Reaction/Blood Tranf: No Family Medical History No Pertinent Family Hx Physical Exam Vital Signs Vital Signs - First Documented 01/08/19 06:03 Temp 36.7 Pulse 60 Resp 18 B/P (MAP) 163/108 (126) O2 Delivery Room Air Capillary Refill : Less Than 3 Seconds Height/Weight/BMI Height: 5'11.00" Weight: 275lbs. 6.0oz. 124.776319jv; 34.00 BMI Method:Stated General Appearance: WD/WN, no apparent distress HEENT: normal ENT inspection Neck: normal inspection Respiratory: normal breath sounds Cardiovascular: regular rate, rhythm, no murmur Gastrointestinal: normal bowel sounds, tenderness (in the epigastric area) Rectal: normal exam, normal rectal tone, heme negative stool Extremities: normal range of motion, non-tender, normal inspection Back: normal inspection Neurologic/Psychiatric: no motor/sensory deficits, alert, normal mood/affect, oriented x 3 Skin: normal color, warm/dry Progress/Results/Core Measures Results/Orders Lab Results Laboratory Tests Test 01/08/19 06:10 Range/Units White Blood Count 9.5 4.3-11.0 10^3/uL Red Blood Count 4.95 4.35-5.85 10^6/uL Hemoglobin 13.7 13.3-17.7 G/DL Hematocrit 41 40-54 % Mean Corpuscular Volume 83 80-99 FL Mean Corpuscular Hemoglobin 28 25-34 PG Mean Corpuscular Hemoglobin Concent 33 32-36 G/DL Red Cell Distribution Width 13.7 10.0-14.5 % Platelet Count 269 130-400 10^3/uL Mean Platelet Volume 12.3 H 7.4-10.4 FL Neutrophils (%) (Auto) 50 42-75 % Lymphocytes (%) (Auto) 39 12-44 % Monocytes (%) (Auto) 7 0-12 % Eosinophils (%) (Auto) 3 0-10 % Basophils (%) (Auto) 1 0-10 % Neutrophils # (Auto) 4.8 1.8-7.8 X 10^3 Lymphocytes # (Auto) 3.7 1.0-4.0 X 10^3 Monocytes # (Auto) 0.7 0.0-1.0 X 10^3 Eosinophils # (Auto) 0.3 0.0-0.3 10^3/uL Basophils # (Auto) 0.1 0.0-0.1 10^3/uL Urine Color YELLOW Urine Clarity CLEAR Urine pH 6.5 5-9 Urine Specific [place] 1.010 L 1.016-1.022 Urine Protein NEGATIVE NEGATIVE Urine Glucose (UA) NEGATIVE NEGATIVE Urine Ketones NEGATIVE NEGATIVE Urine Nitrite NEGATIVE NEGATIVE Urine Bilirubin NEGATIVE NEGATIVE Urine Urobilinogen NORMAL NORMAL MG/DL Urine Leukocyte Esterase 1+ H NEGATIVE Urine RBC (Auto) NEGATIVE NEGATIVE Urine RBC NONE /HPF Urine WBC 0-2 /HPF Urine Squamous Epithelial Cells 0-2 /HPF Urine Crystals NONE /LPF Urine Bacteria NEGATIVE /HPF Urine Casts NONE /LPF Urine Mucus NEGATIVE /LPF Urine Culture Indicated NO Sodium Level 135 135-145 MMOL/L Potassium Level 3.1 L 3.6-5.0 MMOL/L Chloride Level 104 98-107 MMOL/L Carbon Dioxide Level 20 L 21-32 MMOL/L Anion Gap 11 5-14 MMOL/L Blood Urea Nitrogen 8 7-18 MG/DL Creatinine 0.78 0.60-1.30 MG/DL Estimat Glomerular Filtration Rate > 60 BUN/Creatinine Ratio 10 Glucose Level 107 H 70-105 MG/DL Calcium Level 8.6 8.5-10.1 MG/DL Corrected Calcium 8.7 8.5-10.1 MG/DL Total Bilirubin 0.2 0.1-1.0 MG/DL Aspartate Amino Transf (AST/SGOT) 15 5-34 U/L Alanine Aminotransferase (ALT/SGPT) 11 0-55 U/L Alkaline Phosphatase 80 40-136 U/L Total Protein 6.9 6.4-8.2 GM/DL Albumin 3.9 3.2-4.5 GM/DL Amylase Level 52 25-125 U/L My Orders Orders - ROSE VILLALBA MD Cbc With Automated Diff (01/08/19 06:26) Comprehensive Metabolic Panel (01/08/19 06:26) Amylase (01/08/19 06:26) Ua Culture If Indicated (01/08/19 06:26) Ct Abdomen/Pelvis Wo (01/08/19 06:26) Fecal Occult Bedside (01/08/19 06:36) Helicobacter Pylori Mica Igg (01/08/19 06:36) Antacid Suspension (Mylanta Suspension (01/08/19 06:45) Lidocaine 2% Viscous 15 Ml (Xylocaine Vi (01/08/19 06:45) Medications Given in ED Current Medications Medications Dose Ordered Sig/Katherine Route Start Time Stop Time Status Last Admin Dose Admin Al Hydrox/Mg Hydrox/Simethicone 30 ml ONCE ONCE PO 01/08/19 06:45 01/08/19 06:47 DC 01/08/19 07:02 30 ML Lidocaine HCl 5 ml ONCE ONCE PO 01/08/19 06:45 01/08/19 06:47 DC 01/08/19 07:02 15 ML Vital Signs/I&O 01/08/19 06:03 Temp 36.7 Pulse 60 Resp 18 B/P (MAP) 163/108 (126) O2 Delivery Room Air Blood Pressure Mean: 126 POS Progress Progress Note : Time: 07:38 Progress Note Laboratory and radiographic evaluation demonstrated no acute findings on CT of the abdomen and pelvis. The patient's CBC, lipase, complete metabolic panel, and urinalysis were unremarkable. X Treatment course consisted of a GI cocktail which helped the patient's pain. I discussed findings with the patient. I asked that he and his follow up closely counts include [facility] beds at the [facility]. In the interim I recommended omeprazole 40 mg daily and Carafate 1 g 4 times a day. Patient had diffuse dental caries and will follow up with counts include 234 beds at the [facility] dentistry as soon as possible for treatment. I asked that he discontinue his ibuprofen for his dental caries. Initial ECG Impression Date: Jan 08, 2019 Departure Impression Primary Impression: Abdominal pain Qualified Codes: R10.13 - Epigastric pain Disposition: 01 HOME, SELF-CARE Condition: Improved Departure-Patient Inst. Decision time for Depature: 07:41 Referrals: [facility] (PCP/Family) Primary Care Physician Patient Instructions: Acute Abdomen (Belly Pain) Add. Discharge Instructions: Increase omeprazole to 40 mg a day. Add Carafate 1 g 4 times a day. Close follow-up with counts include 234 beds at the [facility]. Discontinue ibuprofen. Return if any problems or questions. All discharge instructions reviewed with patient and/or family. Voiced understanding. Scripts Sucralfate (Carafate) 1 Gm Tablet 1 GM PO QID, #60 TAB Prov: ROSE VILLALBA MD 01/08/19 ROSE VILLALBA MD Jan 08, 2019 06:33 POS
[2019-01-08 06:43] LABS: BACTERIA,URINE NEGATIVE /HPF; SQUAMOUS EPITHELIAL CELL,UR 0-2 /HPF; WBC,URINE 0-2 /HPF
[2019-01-08 06:44] LABS: ALANINE AMINOTRANSFERASE 11 U/L (0-55); ALBUMIN 3.9 GM/DL (3.2-4.5); ALKALINE PHOSPHATASE 80 U/L (40-136); AMYLASE 52 U/L (25-125); BILIRUBIN,TOTAL 0.2 MG/DL (0.1-1.0); BUN/CREATININE RATIO 10; CALCIUM 8.6 MG/DL (8.5-10.1); CARBON DIOXIDE 20 MMOL/L (21-32); CHLORIDE 104 MMOL/L (98-107); CREATININE SERUM 0.78 MG/DL (0.60-1.30); GFR ESTIMATED > 60; GLUCOSE 107 MG/DL (70-105); POTASSIUM 3.1 MMOL/L (3.6-5.0); SODIUM 135 MMOL/L (135-145); TOTAL PROTEIN 6.9 GM/DL (6.4-8.2)
[2019-01-08] MEDS ORDERED: ANTACID SUSP 30 ML UDC (MYLANTA) PO ONE (06:45)
[2019-01-08] MEDS ORDERED: LIDOCAINE 2% VISCOUS 15 ML UDC PO ONE (06:45)
--- NOTE | 2019-01-08 07:07 | Diagnostic Imaging Report ---
PROCEDURE: CT abdomen and pelvis without contrast. TECHNIQUE: Multiple contiguous axial images were obtained through the abdomen and pelvis without the use of intravenous contrast. Auto Exposure Controls were utilized during the CT exam to meet ALARA standards for radiation dose reduction. DATE: February 07, 2019. COMPARISON: None. INDICATION: 33-year-old male, abdominal pain, nausea, vomiting, diarrhea. FINDINGS: There are limitations for evaluation of the abdominal organs, neoplastic processes, abscess, and limited evaluation of the vasculature relating to the lack of intravenous contrast. The visualized portions of the lung bases are clear. The heart is not enlarged. There is no pericardial effusion. The liver is normal in size and contour. The patient is status post cholecystectomy. There is no intrahepatic or extrahepatic bile duct dilation. The main pancreatic duct is not abnormally dilated. Unremarkable appearance of the pancreatic parenchyma. The spleen is not enlarged. There is an accessory splenule on axial image 28. The adrenal glands are unremarkable. There is a punctate 1 to 2 mm nonobstructing left renal stent on axial image 31. There is also an additional punctate 1 to 2 mm nonobstructing left renal stone. Urinary collecting systems are not distended. There is no identified ureteral stone. The urinary bladder is unremarkable. There is very mild diverticulosis without evidence of acute diverticulitis. The appendix is well seen on axial image 44 and adjacent sequential images. The appendix is normal. The intestinal tract is not distended. There is no free intraperitoneal air. There is no drainable fluid collection. There is no free pelvic fluid. There is no identified abnormally enlarged lymph nodes specifically within the abdomen or pelvis meeting CT size criteria for adenopathy. There are mildly prominent bilateral inguinal lymph nodes of uncertain exact etiology or significance. There is no identified acute bony abnormality. IMPRESSION: CT ABDOMEN AND PELVIS. 1. Punctate 1 to 2 mm nonobstructing left renal stones. No ureteral stone or hydronephrosis. 2. No identified acute abnormality in the abdomen or pelvis. Dictated by: Dictated on workstation # [id number]
--- NOTE | 2019-01-08 07:30 | NUR ---
PT STATES MEDICATIONS HAVE HELPED.
--- NOTE | 2019-01-08 07:38 | NUR ---
in talking to pt at this time.
[2019-01-08] MEDS ORDERED: SUCR1TAB36 PO (07:42)
[2019-01-08 07:52] VITALS: BP 127/77
== END 2019-01-08 07:52 | disposition home or self-care (01) ==
LOC: EDUNIT# 05:22 → ER 05:24
DX: R10.13 Epigastric pain (principal); E11.9 Type 2 diabetes mellitus without complications; I10 Essential (primary) hypertension; J45.909 Unspecified asthma, uncomplicated; F41.9 Anxiety disorder, unspecified; E78.00 Pure hypercholesterolemia, unspecified; Z88.0 Allergy status to penicillin; Z87.891 Personal history of nicotine dependence; Z79.84 Long term (current) use of oral hypoglycemic drugs; Z82.49 Family history of ischemic heart disease and other diseases of the circulatory system
CPT/HCPCS: 36415; 74176; 80053; 81000; 82150; 82274; 85025; 86677

== ENCOUNTER 2019-06-30 13:31 | Emergency (ER) | payer SELFPAY ==
[~2019-06-30] VITALS: Ht 180.3 cm; Wt 115.0 kg
[~2019-06-30 13:31] MED LIST changes: +SUCR1TAB36 PO; -TRAM50TA2 PO; +TRM50T PO
--- OUTSIDE RECORDS SUMMARY | 2019-06-30 13:37 | XMS REPORT ---
Author Author [employer]. Organization [facility] Address [address] [address] Care Team Providers Care Food Beverage Server Name Role Phone KAVON LINTON Unavailable MISAEL ESCOBEDO Unavailable Unavailable LINTON, KAVON Unavailable Unavailable TINO ROLDANFER Unavailable Unavailable RITESH MARTINEZ Unavailable Unavailable [facility] Unavailable [phone] JOSSIE CHRISTOPHER Unavailable Unavailable LINTON, KAVON Unavailable LINTON, KAVON Unavailable LINTON, KAVON Unavailable LINTON, KAVON Unavailable zzCAREY, KAVON Unavailable zzCAREY, KAVON Unavailable SABRA HARGROVE Unavailable Migration, Doctor Unavailable Unavailable Migration, Doctor Unavailable Unavailable AFSHIN MCFARLAND PRESSURIZER Unavailable Unavailable LULU WHITTEN Unavailable Unavailable ALY WALTERS Unavailable Unavailable SPIVEY DO, JASON Unavailable Unavailable SPIVEY DO, JASON Unavailable Unavailable SPIVEY DO, JASON S Unavailable Unavailable SPIVEY DO, JASON S Unavailable Unavailable LYNNE DHALIWAL Unavailable Unavailab ROSE Aguila MD Unavailable Unavailable BHAVYA RAMOS Unavailable GILLIAN LONG Unavailable Unavailable ROSE VILLALBA MD Unavailable Unavailable GEORGIAJAVY Osullivan DO K Unavailable Unavailable [facility] [phone] KATYA ALMANZA APRN Unavailable Unavailable Unavailable Unavailable Allergies The data below is from unstructured sources Allergen Type Severity Reaction Last Updated Verified Status Penicillins ([id number]) Allergy Unknown March 12, 2012 Yes Active Medications Current Medications Medication Ingredient Drug Dose Dates Status Sig Sig Care Class(es) (Normalized) (Original) Provid er no Glucocard no 09-30-19 Active no Glucocard no information Expression information 17 information Express ion name (2 Test 1 Test 1 In (no sources.) Vitro 2 phone) times a day test 3 times per week 12h 26 Sep, 2016 12 months Active 09-29-2016 Active no no no name inform informat (no ation ion phone) predniSONE predniSONE no 20 mg 11-19-19 Active take 1 Predn iSONE no 20 mg oral Translation information 12 tablet by 20 mg pavithra e 1 name tablet (1 s: [ mouth twice tablet (20 (no source.) PredniSONE daily mg) by oral phone) 20 mg] route 2 times per day for 5 day(s) Nov, Active Completed/Discontinued Medications Medication Ingredient Drug Dose Dates Status Sig Sig Care Class(es) (Normalized) (Original) Provid er atorvastati atorvastati HMG-CoA 09-10-19 Complete no Atorvas tatin no n 20 mg n Reductase 19 - d information Calcium name oral tablet Inhibitor 09-10-19 Discontinued (no (1 source.) - 20 ORAL phone) 09-10-19 Daily September 09, 2018 2:01pm (One-Time) no Azithromyci Macrolide 03-12-19 Complete no Azithromyc in no information n Antimicrobi 13 - d information Discont inued name (1 source.) al 09-22-19 2 ORAL Daily (no 15 16 March phone) 2012 7:57pm September 21, 2014 FOR INFECTION sucralfate Sucralfate Aluminum 01-09-20 Complete no Sucralfa te no 1000 mg Complex 19 - d information Discontinued na me oral tablet 01-09-20 1 ORAL Four (no (1 source.) 19 - Times Daily phone) 01-09-20January [id number] 7:42am (One-Time) Problems Active Problems Problem Normalized Date of Normalized Normalized Provider Fac ility Classification Problem(s) Problem Problem Problem Sta tus Onset/Resoluti Duration on Other upper Acute Episodic Active BHAVYA RAMOS [facility] ity respiratory sinusitis, [address] [facility] infections (2 unspecified of [place] sources.) Translations: [place] ([address]) [ - Acute non-recurrent maxillary sinusitis J01.00] Other upper Allergic Chronic Active KAT[facility] Via respiratory rhinitis, ARCHIE [place] disease (2 unspecified Hospital - sources.) [place] ([address]79) Other Body mass Chronic Active JASON SPIVEY [facility] Via nutritional; index (BMI) DO [place] endocrine; and 38.0-38.9, Hospital - metabolic adult [place] disorders (8 (22071) sources.) Other Body mass Chronic Active [facility] nutritional; index (BMI) zzHONOLULU [address] [facility] endocrine; and 45.0-49.9, of [facility] metabolic adult [place] (83038) disorders (14 Translations: sources.) [ - BMI 45.0-49.9, adult Z68.42] Other Body mass Chronic Active [facility] a nutritional; index 30+ - [facility]; and obesity [address] [facility] (98668) disorders (1 source.) Other Body mass Chronic Active [facility] nutritional; index 40+ - [facility] [address] [place] [address] endocrine; and severely obese of [facility] metabolic Translations: [place] (29321) disorders (8 [ BMI sources.) 45.0-49.9, adult, - BMI 45.0-49.9, adult Z68.42, BMI 45.0-49.9, adult] Other Elevated Episodic Active OLGA WOOD Via circulatory blood-pressure DO [place] disease (3 reading, Hospital - sources.) without [place] diagnosis of (07639) hypertension Residual Family history Episodic Active LYNNE [facility] Via codes; of ischemic RICHARDSON-ANDOSVALDOO [place] unclassified heart disease N , [place] [facility] - (21 sources.) and other [place] diseases of (51572) the circulatory system Translations: [ - Family history of early CAD Z82.49, - Family history of heart disease Z82.49] Esophageal Gastro-esophag Chronic Active Doctor Commun ity disorders (6 eal reflux Migration [facility] sources.) disease of [facility] without [place] ([address]71) esophagitis Translations: [ - GERD without esophagitis K21.9, GERD without esophagitis, GERD without esophagitis] Residual Hypersomnia, Chronic Active KATYA [facility] Via codes; unspecified ARCHIE [place] unclassified Hospital - (2 sources.) [place] ([address]) Fluid and Hypokalemia Episodic Active JASON SPIVEY [facility] V ia electrolyte DO [place] disorders (8 Hospital - sources.) [place] (60000) Other Lateral Episodic Active [facility] connective epicondylitis, [address] tissue disease left elbow of [facility] (6 sources.) Translations: [place] ([address]79) [ - Lateral epicondylitis, left elbow M77.12, - Lateral epicondylitis, left elbow M77.12] Other residential Episodic Active JASONYanci SPIVEY [facility] Via aftercare (6 (current) use DO [place] sources.) of oral Hospital - hypoglycemic [place] drugs (11947) Other Metabolic Chronic Active [facility] nutritional; syndrome [address] endocrine; and Translations: of [facility] metabolic [ - Insulin [place] () disorders (6 resistance sources.) E88.81, - Insulin resistance E88.81] Other Morbid Chronic Active [facility] nutritional; (severe) [address] endocrine; and obesity due to of [facility] metabolic excess [place] () disorders (20 calories sources.) Translations: [ - Morbid obesity E66.01, - Morbid obesity E66.01] Other Obesity, Chronic Active JASON SPIVEY [facility] Via nutritional; unspecified DO [place] endocrine; and Hospital - metabolic [place] disorders (8 (08511) sources.) Other 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[facility] endocrine hypoglycemia [address] disorders (12 Translations: of [facility] sources.) [ - [place] ([address]167) Hyperinsulinem ia E16.1, - Hyperinsulinem ia E16.1] Other Pain in left Episodic Active [facility] non-traumatic knee [address] joint Translations: of [facility] disorders (6 [ - Pain in [place] (38[address]) sources.) left knee M25.562, - Pain in left knee M25.562] Other [facility] in [facility] [address] joint Translations: of [facility] disorders (6 [ - Right knee [place] (37962) sources.) pain M25.561, - Right knee pain M25.561] Other Pain in Episodic Active [facility] connective unspecified [address] tissue disease hand of [facility] (6 sources.) Translations: [place] (60089) [ - Hand pain M79.643, - Hand pain M79.643] Residual Parasomnia, Chronic Active K[facility]YA [facility] Via codes; unspecified ARCHIE [place] unclassified Hospital - (2 sources.) [place] ([address]) Disorders of Periapical no information Active LULU [facility] Via teeth and jaw abscess KIRSTEN HAAS (7 sources.) without sinus Hospital - Translations: [place] [ CHRONIC (21877) GINGIVITIS, PLAQUE INDUCED, CHRONIC GINGIVITIS, PLAQUE INDUCED] Screening and Personal Episodic Active JASON SPIVEY [facility] Via history of history of DO [place] mental health nicotine Hospital - and substance dependence [place] abuse codes (53035) (10 sources.) Other Psoriasis, Chronic Active JASON SPIVEY , [facility] Vi a inflammatory unspecified DO Brighti condition of Hospital - skin (8 [place] sources.) (78733) Other lower Snoring Episodic Active KATYA [facility] Via respiratory ARCHIE [place] disease (2 Hospital - sources.) [place] (84047) Abdominal pain Unspecified Episodic Active ROSE ORLY , [facility] Via (5 sources.) abdominal pain MD Dang Translations: Hospital - [ EPIGASTRIC [place] PAIN, (37774) Abdominal pain] Asthma (2 Unspecified Chronic Active ROSE ORLY , [facility] V ia sources.) asthmaMD Dang uncomplicated Hospital - [place] (40426) Other ear and Unspecified Chronic Active JASON SPIVEY , [facility] Via sense organ hearing loss, DO [place] disorders (4 unspecified Hospital - sources.) ear [place] (81468) Past or Other Problems Problem Normalized Date of Normalized Normalized Provider Fac ility Classification Problem(s) Problem Problem Problem Sta tus Onset/Resoluti Duration on Other residential no information no information JASON SPIVEY [facility] Via aftercare (4 (current) use DO [place] sources.) of oral Hospital - hypoglycemic [place] drugs (66225) Procedures Procedure Normalized Procedure Procedure Result Performer Facility Date 12-02-2017 Assay of insulin total no information no name (no p miri) [facility] (86706) 12-02-2017 Assay of thyroid no information no name (no phone) [facility] stimulating hormone [facility] (76245) 12-02-2017 Blood count complete no information no name (no fito ne) [facility] auto&auto difrntl wbc [facility] (69022) 12-02-2017 Collection venous no information no name (no phone) [facility] blood venipuncture [facility] (39511) 12-02-2017 Comprehensive no information no name (no phone) Co [facility] metabolic panel [facility] (99360) 01-08-2019 CT of abdomen and no information no name (no phone) [facility] (61228) 12-01-2017 Hemoglobin no information no name (no phone) Count includes the [facility] glycosylated a1c [facility] (59903) 12-02-2017 Lipid panel no information no name (no phone) Comm [facility] (33533) 12-01-2017 Urine albumin no information no name (no phone) Co [facility] semiquantitative [facility] (49513) Immunizations Normalized Immunization Date Notes Care Provider Facili ty Immunization no information 01-08-2019 no information [facility] [place] [facility] [address] [facility] (91869) Results Test Name Value Interpretation Reference Range Date Time Fa cility (Normalized) (Normalized) (Medline Reference) microalbumin, urine (in house) on null MICROALBUMIN, normal (no code) [facility] Healt [facility] URINE (IN HOUSE) [facility] (38047) MICROALBUMIN, 493546 (no code) [facility] URINE (IN HOUSE) [facility] (00319) MICROALBUMIN, 08/2018 (no code) [facility] URINE (IN HOUSE) [facility] (84202) MICROALBUMIN, slightly cloudy (no code) [facility] th URINE (IN HOUSE) [facility] (03374) MICROALBUMIN, dark yellow (no code) [facility]alt [facility] URINE (IN HOUSE) [facility] (88451) MICROALBUMIN, 30 mg/L (no code) [facility]alt [facility] URINE (IN HOUSE) [facility] (43166) MICROALBUMIN, 300 mg/dL (no code) [facility] URINE (IN HOUSE) [facility] (42661) MICROALBUMIN, <30 mg/g (no code) [facility] (39167) a1c (in house) on null Hemoglobin 6.9 % (no code) 0 - 5.7 % [facility] A1c/Hemoglobin.t Center of [facility] fraction (Bld) (14563) A1C (IN HOUSE) 6.1 (no code) [facility] (98538) A1C (IN HOUSE) 0856 (no code) [facility] (09848) A1C (IN HOUSE) 05/2019 (no code) [facility] (58779) No panel information on 2019-05-01 Albumin 4.3 g/dL (N) 3.4 - 5.4 g/dL [facility] [Mass/Vol] [facility] (35175) Albumin/Globulin 1.4 {ratio} (N) 1 - 2.5 {ratio} Comm [facility] [Mass ratio] [facility] (37445) ALP [Catalytic 76 U/L (N) 44 - 147 U/L [facility] Health activity/Vol] [facility] (34515) ALT [Catalytic 9 U/L (N) 4 - 40 U/L Community ealt activity/Vol] [facility] (75177) AST [Catalytic 19 U/L (N) 10 - 34 U/L [facility] Health activity/Vol] [facility] (34205) Bilirubin 0.6 mg/dL (N) 0.1 - 1.2 mg/dL [facility] [Mass/Vol] [facility] (10599) Calcium 9.3 mg/dL (N) 8.5 - 10.2 mg/dL [facility] [Mass/Vol] [facility] (62039) Chloride 104 mmol/L (N) 95 - 106 mmol/L [facility] [Moles/Vol] [facility] (37002) Cholesterol 140 mg/dL (N) 180 - 200 mg/dL [facility] [Mass/Vol] [facility] (42781) Cholesterol in 30 mg/dL (L) [facility] HDL [Mass/Vol] [facility] (06538) Cholesterol in 86 mg/dL (N) 0 - 100 mg/dL [facility] LDL [Mass/Vol] [facility] (95852) Cholesterol non 110 mg/dL (N) [facility] HDL [Mass/Vol] [facility] (15199) Cholesterol.tota 4.7 {ratio} (N) [facility] l/Cholesterol in [facility] HDL [Mass ratio] [facility] (69234) CO2 [Moles/Vol] 26 mmol/L (N) 23 - 29 mmol/L [facility] (63320) Color (U) 12/2019~Clear~Ye (no code) [facility] lt llow [facility] (26127) CRE 80~300 (no code) [facility] (33586) Creatinine 0.91 mg/dL (N) [facility] [Mass/Vol] [facility] (66622) Exp date 02/24 (no code) [facility] (28762) Exp date 30-300~Normal~Ab (no code) [facility] normal~05595C~09 [facility] /2019 [facility] (80838) GFR/1.73 sq M 129 (N) 90 - 120 [facility] predicted among mL/min/{1.73_m2} mL/min/{1.73_m2} [facility] f [facility] blacks MDRD [facility] (S/P/Bld) [Vol (55366) rate/Area] GFR/1.73 sq 111 (N) 90 - 120 [facility] M.predicted MDRD mL/min/{1.73_m2} mL/min/{1.73_m2} [facility] (S/P/Bld) [Vol [facility] rate/Area] (26330) Globulin (S) 3.0 g/dL (N) 2 - 3.5 g/dL [facility] [Mass/Vol] [facility] (40679) Glucose 98 mg/dL (N) 60 - 125 mg/dL [facility] [Mass/Vol] [facility] (27496) Lot 5.6~6.6~0610 (no code) [facility] (23527) Lot # [id number] (no code) [facility] (46663) MICROALBUMIN abnormal (no code) [facility] (21930) Potassium 4.4 mmol/L (N) 3.7 - 5.2 mmol/L [facility] [Moles/Vol] [facility] (68034) Protein 7.3 g/dL (N) 6.4 - 8.3 g/dL [facility] [Mass/Vol] [facility] (18825) Sodium 138 mmol/L (N) 135 - 145 mmol/L [facility] [Moles/Vol] [facility] (57452) Triglyceride 140 mg/dL (N) 0 - 150 mg/dL [facility] [Mass/Vol] [facility] (36002) Urea nitrogen 14 mg/dL (N) 7 - 20 mg/dL [facility] [Mass/Vol] [facility] (27018) Urea NOT APPLICABLE (no code) [facility] nitrogen/Creatin [facility] [Mass ratio] [facility] (06884) No panel information on 2016-09-16 Albumin 3.9 g/dL (no code) 3.4 - 5.4 g/dL 09-16-2016 Not Yulisa ilable [Mass/Vol] 09: (61724) Albumin/Globulin 1.2 {ratio} (no code) 1 - 2.5 {ratio} 7 Not Available [Mass ratio] 09: (98415) ALP [Catalytic 101 U/L (no code) 44 - 147 U/L 09-16-2016 Not Available activity/Vol] 09: (49710) ALT [Catalytic 12 U/L (no code) 4 - 40 U/L 09-16-2016 Not Av ailable activity/Vol] 09: (89119) AST [Catalytic 16 U/L (no code) 10 - 34 U/L 09-16-2016 Not A vailable activity/Vol] 09: (33453) Basophils (Bld) 0.1 10*3/uL (no code) 0 - 0.3 10*3/uL 09-16-2016 Not Available [#/Vol] 08:260400 (70378) Basophils/100 1 % (no code) 0.5 - 1 % 09-16-2016 Not Avai lable WBC (Bld) 08: (33953) Bilirubin 0.3 mg/dL (no code) 0.1 - 1.2 mg/dL 09-16-2016 Not Av ailable [Mass/Vol] 09:06 (86102) Calcium 8.9 mg/dL (no code) 8.5 - 10.2 mg/dL 09-16-2016 Not A vailable [Mass/Vol] 09:06040 (51680) Chloride 99 mmol/L (no code) 95 - 106 mmol/L 09-16-2016 Not Av ailable [Moles/Vol] 07:58-0400 (49928) Cholesterol 148 mg/dL (no code) 180 - 200 mg/dL 09-16-2016 Not Available [Mass/Vol] 09:060400 (70629) Cholesterol in 18 mg/dL (L) 09-16-2016 Not Availab le HDL [Mass/Vol] 09:060400 (72163) Cholesterol in Comment (no code) 09-16-2016 Not Availab le LDL [Mass/Vol] 09:060400 (08184) Cholesterol in Comment (no code) 09-16-2016 Not Availab le VLDL [Mass/Vol] 09:060400 (21154) CO2 [Moles/Vol] 21 mmol/L (no code) 23 - 29 mmol/L 09-16-2016 N ot Available 09: (28827) Creatinine 0.76 mg/dL (no code) 09-16-2016 Not Available [Mass/Vol] 09:060400 (03781) Eosinophils 0.2 10*3/uL (no code) 0.05 - 0.5 09-16-2016 Not Yulisa ilable (Bld) [#/Vol] 10*3/uL 08:0400 (09602) Eosinophils/100 2 % (no code) 1 - 4 % 09-16-2016 Not Av ailable WBC (Bld) 08: (71777) Erythrocyte 14.3 % (no code) 11.6 - 14.6 % 09-16-2016 Not Av ailable distribution 08:-0400 (51473) width (RBC) [Ratio] GFR/1.73 sq M 143 (no code) 90 120 09-16-2016 Not Avai lable predicted among mL/min/{1.73_m2} mL/min/{1.73_m2} 09:060400 (36116) blacks MDRD (S/P/Bld) [Vol rate/Area] GFR/1.73 sq M 123 (no code) 90 - 120 09-16-2016 Not Avai lable predicted among mL/min/{1.73_m2} mL/min/{1.73_m2} 09:0400 (08341) non-blacks MDRD (S/P/Bld) [Vol rate/Area] Globulin (S) 3.2 g/dL (no code) 2 - 3.5 g/dL 09-16-2016 Not Av ailable [Mass/Vol] 09: (06620) Glucose 147 mg/dL (H) 60 - 125 mg/dL 09-16-2016 Not Yulisa ilable [Mass/Vol] 09:0400 (94927) HbA1c (Bld) 7.3 % (H) 0 - 5.7 % 09-16-2016 Not Availa ble [Mass fraction] 15:23-0400 (31282) Hematocrit (Bld) 41.0 % (no code) 36.1 - 50.3 % 09-16-2016 N ot Available [Volume 08:0400 (73614) fraction] Hemoglobin (Bld) 13.7 g/dL (no code) 12.1 - 17.2 g/dL 09-16-2016 Not Available [Mass/Vol] 08:0400 (18500) Immature 0.0 10*3/uL (no code) 0 - 0.2 10*3/uL 09-16-2016 Not Available granulocytes 08:0400 (03872) (Bld) [#/Vol] Immature 0 % (no code) 0 - 0.5 % 09-16-2016 Not Availabl e granulocytes/100 08:0400 (94337) WBC (Bld) Lymphocytes 2.6 10*3/uL (no code) 0.9 - 2.9 09-16-2016 Not Avai lable (Bld) [#/Vol] 10*3/uL 08:0400 (11031) Lymphocytes/100 30 % (no code) 20 - 40 % 09-16-2016 Not Av ailable WBC (Bld) 08: (34206) MCH (RBC) 27.3 pg (no code) 27 - 31 pg 09-16-2016 Not Availab le [Entitic mass] 08: (87190) MCHC (RBC) 33.4 g/dL (no code) 32 - 36 g/dL 09-16-2016 Not Avai lable [Mass/Vol] 08:0 (55080) MCV (RBC) 82 fL (no code) 80 - 100 fL 09-16-2016 Not Availa ble [Entitic vol] 08: (71270) Monocytes (Bld) 0.4 10*3/uL (no code) 0.3 - 0.9 09-16-2016 Not Available [#/Vol] 10*3/uL 08:0400 (31161) Monocytes/100 5 % (no code) 2 - 8 % 09-16-2016 Not Avai lable WBC (Bld) 08: (99598) Neutrophils 5.5 10*3/uL (no code) 1.7 - 7 10*3/uL 09-16-2016 No t Available (Bld) [#/Vol] 08:0400 (48851) Neutrophils/100 62 % (no code) 40 - 60 % 09-16-2016 Not Av ailable WBC (Bld) 08:0400 (47355) Platelets (Bld) 294 10*3/uL (no code) 150 - 450 09-16-2016 Not Available [#/Vol] 10*3/uL 08:0400 (05827) Potassium 4.2 mmol/L (no code) 3.7 - 5.2 mmol/L 09-16-2016 Not Available [Moles/Vol] 07:58-0400 (95920) Protein 7.1 g/dL (no code) 6.4 - 8.3 g/dL 09-16-2016 Not Yulisa ilable [Mass/Vol] 09: (12655) RBC (Bld) 5.02 10*6/uL (no code) 4.2 - 6.1 09-16-2016 Not Avail able [#/Vol] 10*6/uL 08: (16604) Sodium 138 mmol/L (no code) 135 - 145 mmol/L 09-16-2016 Not Available [Moles/Vol] 07:58 (58541) Triglyceride 512 mg/dL (H) 0 - 150 mg/dL 09-16-2016 Not A vailable [Mass/Vol] 09: (05355) TSH Qn 1.940 (no code) 09-16-2016 Not Available 15: (16998) Urea nitrogen 10 mg/dL (no code) 7 - 20 mg/dL 09-16-2016 Not A vailable [Mass/Vol] 09: (80557) Urea 13 mg/mg (no code) 6 - 22 mg/mg 09-16-2016 Not Avail able nitrogen/Creatin 09: (99771) ine [Mass ratio] WBC (Bld) 8.8 10*3/uL (no code) 3.5 - 10.5 09-16-2016 Not Avail able [#/Vol] 10*3/uL 08: (07705) Vital Signs Vital Sign Value Interpretation Reference Date Time Care Prov ider Facility (Normalized) (Normalized) Range BMI (Body Mass 46 kg/m2 (no code) 15 - 25 kg/m2 01-10-2018 JENNIFER A JAKUBL Community Index) 17:40-[address] [place] [address] (97026) BMI (Body Mass 45.48 kg/m2 (no code) 15 - 25 kg/m2 12-01-2017 [place] SHANA Community Index) 17:00-[address] [place] [address] (97190) Body 98.1 [degF] (no code) 97.8 - 99.0 01-10-2018 SABRA MAD L Community Temperature [degF] 17:40-[address] [place] [address] (48658) Body 98 [degF] (no code) 97.8 - 99.0 12-01-2017 [facility]ON Co [facility]munity Temperature [degF] 17:00-[address] (46649) Height 167.64 cm (no code) cm 01-10-2018 SABRA CALLL Co mmunity 17:40-[address] [place] [address] (93387) Height 167.64 cm (no code) cm 12-01-2017 KAVON Commu nity 17:00-[address] (07974) Weight 129.28 kg (no code) kg 01-10-2018 SABRA CALLL Co mmunity 17:40-[address] [place] [address] (49600) Weight 127.82 kg (no code) kg 12-01-2017 KAVON Commu nity 17:00-[address] (23078) Interventions No Information Plan of Treatment Normalized Care Care Detail Care Activity Date Care Provider F acility Activity H. pylori Ab Qn (S) no information no information [facility] [address] [place] [address] (56294) H. pylori IgA and no information no information [facility] IgG and IgM [Interp] [address] [place] [address] (15695) Patient Education Acute Abdomen (Belly no information [facility] Pain) [address] [place] [address] (00628) Patient referral no information no information [facility] [address] [place] [address] (78332) Goals Patient Goal Desired Goal no information no information Social History Normalized Code Original Code Date Value Tobacco smoking status Tobacco smoking status no information Ex-smoker (finding) TNIS TNIS no information no information 09-09-2018 no information no information no information 05-17-2015 Occasionally Us es no information no information 05-17-2015 No no information no information 01-08-2019 Denies no information no information 01-08-2019 Former Smoker no information no information 01-08-2019 Cigarettes no information no information 01-08-2019 MARIJUANA Sex Assigned At Sex Assigned At no information M octavio Functional Status The data below is from unstructured sourcesNo functional status results.No Functional Status information availableNo Functional Status information available Mental Status The data below is from unstructured sourcesNo Mental Status Information Available Encounters Encounter Normalized Encounter Encounter Diagnosis Care Provi louisa Organization Date Type 12-01-2017 ([facility]) Chronic Health Essential (primary) [facility] [place] (no [facility] - Maintenance hypertension phone) (no phone) 12-01-2017 - 12-01-2017 07-19-2018 (ESTAB) Establish Care Morbid (severe) GILLIAN LONG (no phone) [facility] - obesity due to excess (no phone) 07-19-2018 calories - 07-19-2018 10-04-2018 [facility] Morbid (severe) NITO EMILY CHILEL (no [facility] obesity due to excess phone) (no phone) calories 12-02-2017 Consultation for Essential (primary) KAVON Garrett (no [facility] - laboratory medicine hypertension phone) (no p miri) 12-02-2017 - 12-02-2017 01-08-2019 Emergency department no information (no phone) As [facility] patient [facility] (no phone) 01-08-2019 01-08-2019 Emergency department no information no name (no fito ne) no organization name - patient visit (no phone) 01-08-2019 09-08-2018 Emergency department no information no name (no fito ne) no organization name patient visit (no phone) 05-17-2015 Emergency department no information no name (no fito ne) no organization name - patient visit (no phone) 05-17-2015 09-21-2014 Emergency department no information no name (no fito ne) no organization name - patient visit (no phone) 09-21-2014 09-21-2014 Emergency department no information no name (no fito ne) no organization name - patient visit (no phone) 09-21-2014 03-12-2012 Emergency department no information no name (no fito ne) no organization name - patient visit (no phone) 03-12-2012 09-09-2018 Evaluation and no information no name (no phone) n o organization name - management of (no phone) 09-09-2018 inpatient 09-08-2018 Evaluation and no information no name (no phone) n o organization name - management of (no phone) 09-09-2018 inpatient 09-08-2018 Evaluation and no information no name (no phone) n o organization name - management of (no phone) 09-09-2018 inpatient 01-10-2018 Nursing evaluation of Body mass index (BMI) T ALLAN HARGROVE (no phone) [facility] - patient and report 45.0-49.9, adult CARE (no phone) 01-10-2018 - 01-10-2018 06-23-2017 Patient encounter no information no name (no phone) no organization name (no phone) 03-03-2015 Patient encounter no information no name (no phone) no organization name (no phone) 02-03-2015 Patient encounter no information no name (no phone) no organization name (no phone) 05-01-2019 Patient encounter no information (no phone) [facility] (no phone) 03-03-2019 Patient encounter no information no name (no phone) no organization name procedure (no phone) 01-08-2019 Patient encounter no information no name (no phone) no organization name procedure (no phone) 10-04-2018 Patient encounter no information no name (no phone) no organization name procedure (no phone) 10-04-2018 Patient encounter no information no name (no phone) no organization name procedure (no phone) 09-25-2018 Patient encounter no information no name (no phone) no organization name procedure (no phone) 09-11-2018 Patient encounter no information no name (no phone) no organization name procedure (no phone) 09-11-2018 Patient encounter no information no name (no phone) no organization name procedure (no phone) 09-08-2018 Patient encounter no information no name (no phone) no organization name - procedure (no phone) 09-09-2018 09-08-2018 Patient encounter no information no name (no phone) no organization name - procedure (no phone) 09-09-2018 03-03-2015 Patient encounter no information no name (no phone) no organization name procedure (no phone) 02-03-2015 Patient encounter no information no name (no phone) no organization name procedure (no phone) 10-31-2018 Telephone encounter no information GILLIAN ETHAN (no phone) [facility] (no phone) 06-16-2018 Telephone encounter Essential (primary) GILLIAN ETHAN (no phone) [facility] - hypertension (no phone) 06-16-2018 - 06-16-2018 no information Encounter for dental no name (no phone) no or ganization name examination and (no phone) cleaning without abnormal findings no information Encounter for general no name (no phone) no o rganization name adult medical (no phone) examination without abnormal findings Medical Equipment The data below is from unstructured sourcesNo Medical Equipment Information available Payers Normalized Payer Value [facility] no information ([id number]) Evaluation note Note Type Note Facility Evaluation No Assessments Information Available A scension note [facility] ([id number]) Summary Purpose eClinicalWorks SubmissioneClinicalWorks SubmissioneClinicalWorks SubmissioneClinicalWorks SubmissioneClinicalWorks SubmissioneClinicalWorks SubmissioneClinicalWorks SubmissioneClinicalWorks SubmissioneClinicalWorks SubmissioneClinicalWorks SubmissioneClinicalWorks SubmissioneClinicalWorks SubmissioneClinicalWorks SubmissioneClinicalWorks Submission Advance Directives Directive Response Recor ded Date/Time Advance Directives No 5:08pm Resuscitation Status Full Code 05/17/15 5:08pm Advance Directive Response Recorded Date/Time Advance Directives No No 2018 6:03am Resuscitation Status Full Code January 08, 2019 6:03am Discharge Instructions No hospital discharge instructions. Chief Complaint and Reason for Visit Chief Complaint Abdominal/GI Problem s Reason for Visit [id number] Additional Source Comments This clinical document has been generated using [employer] software that has been certified by the Office of the National Coordinator for Health Information Technology (ONC 15.99.04.3023.Diam.[id number]) and the National Committee for Machining Associate (NCQA, as an eMeasure certified technology). FOR RECORDS PERTAINING TO PATIENTS WHO ARE OR HAVE BEEN ENROLLED IN A CHEMICAL D EPENDENCY/SUBSTANCE ABUSE PROGRAM, SOME INFORMATION MAY BE OMITTED. This clinica l summary was aggregated from multiple sources. Caution should be exercised in using it in the provision of clinical care. This summary normalizes information from multiple sources, and as a consequence, information in this document may ma terially change the coding, format and clinical context of patient data. In mary grace tion, data may be omitted in some cases. CLINICAL DECISIONS SHOULD BE BASED ON T HE PRIMARY CLINICAL RECORDS. [employer] provides no warranty or guara ntee of the accuracy or completeness of information in this document.The followi ng information is based on time limited clinical information UNRECOGNIZED CONTENT PROVIDED BELOW FOR UNRECOGNIZED SECTION MEDICAL (GENERAL) HISTORY Type Description Date Medical History migraines Medical History hypertension Surgical History cholecystectomy age 16 Hospitalization History denies Type Description Date Medical History migraines Medical History hypertension Medical History DM II Medical History Hyperlipidemia Surgical History cholecystectomy age 16 Hospitalization History No know Hosp italization history Type Description Date Medical History migraines Medical History hypertension Medical History DM II Medical History Hyperlipidemia Surgical History cholecystectomy age 16 Hospitalization History Chest pain 09/22 UNRECOGNIZED CONTENT PROVIDED BELOW FOR UNRECOGNIZED SECTION REASON FOR VISIT Lab (walk-in)cough, congestion, sinus pressure. been sick for 3 weeks. kbandrésr n, encouraged pt to increase fluids, get plenty of rest, tylenol et motrin as ne eded. will make appt with pcp. pt verbalized [id number]
--- NOTE | 2019-06-30 13:38 | ED Chest Pain ---
General Stated Complaint: CHEST PAIN Source: patient Exam Limitations: no limitations History of Present Illness Date Seen by Provider: Jun 30, 2019 Time Seen by Provider: 13:36 Initial Comments To ER with reports of chest pain that began 30 minutes ago while smoking a joint in the garage with his pushpa. His body has heart problems, gave him an atorvastatin and drove him to the emergency room. He had brief tingling of fingertips on both sides and he cannot stop shaking. Timing/Duration: 1/2 hour Severity/Quality: moderate Location: central Radiation: no radiation Activities at Onset: none ASA po COMPUTER GRAPHICS ILLUSTRATOR: No NTG SL COMPUTER GRAPHICS ILLUSTRATOR: No Allergies and Home Medications Allergies Coded Allergies: Penicillins (Verified Allergy, Unknown, 03/12/12) Home Medications Atorvastatin Calcium 20 Mg Tablet, 20 MG PO DAILY Prescribed by: BERTA MCMILLAN on 09/09/18 1401 Lisinopril 20 Mg Tablet, 20 MG PO DAILY, (Reported) Metoprolol Succinate 50 Mg Tab.er.24h, 50 MG PO DAILY, (Reported) Sucralfate 1 Gm Tablet, 1 GM PO QID Prescribed by: ROSE VILLALBA MD on 01/08/19 0742 Tramadol HCl 50 Mg Tablet, 50 MG PO Q4H PRN for PAIN Prescribed by: LULU HAAS on 05/17/15 1824 Patient Home Medication List Home Medication List Reviewed: Yes Review of Systems Review of Systems Constitutional: see HPI EENTM: No Symptoms Reported Respiratory: No Symptoms Reported Cardiovascular: See HPI, Chest Pain Gastrointestinal: No Symptoms Reported Genitourinary: No Symptoms Reported Musculoskeletal: no symptoms reported Skin: no symptoms reported Psychiatric/Neurological: No Symptoms Reported Endocrine: No Symptoms Reported Hematologic/Lymphatic: No Symptoms Reported Past Pwoplee-Guvtew-Grbreo Hx Patient Social History Drug of Choice: MARIJUANA Type Used: Cigarettes Recent Foreign Travel: No Contact w/Someone Who Travel: No Recent Hopitalizations: No Immunizations Up To Date Tetanus Booster (TDap): Less than 5yrs Seasonal Allergies Seasonal Allergies: No Past Medical History Surgeries: Yes Gallbladder Respiratory: Yes Asthma Cardiac: Yes High Cholesterol, Hypertension Neurological: No Reproductive Disorders: No Sexually Transmitted Disease: No HIV/AIDS: No Genitourinary: No Gastrointestinal: Yes Hiatal Hernia Musculoskeletal: No Endocrine: Yes Diabetes, Non-Insulin dep HEENT: No Hearing Impairment: Hard of Hearing Cancer: No Psychosocial: Yes Anxiety Integumentary: No Psoriasis Blood Disorders: No Adverse Reaction/Blood Tranf: No Family Medical History No Pertinent Family Hx Physical Exam Vital Signs Vital Signs - First Documented 06/30/19 13:31 Temp 36.7 Pulse 105 Resp 22 B/P (MAP) 151/92 (111) Pulse Ox 98 O2 Delivery Room Air Capillary Refill : Height, Weight, BMI Height: 5'11.00" Weight: 275lbs. 6.0oz. 124.760607ol; 34.00 BMI Method:Stated General Appearance: No Apparent Distress, WD/WN, Anxious Neck: Full Range of Motion, Normal Inspection Respiratory: No Accessory Muscle Use, No Respiratory Distress Cardiovascular: Regular Rate, Rhythm, Normal Peripheral Pulses Gastrointestinal: Non Tender, Soft Extremity: Normal Capillary Refill, Normal Inspection Neurologic/Psychiatric: Alert, Oriented x3 Skin: Normal Color, Warm/Dry Progress/Results/Core Measures Results/Orders Lab Results Laboratory Tests Test 06/30/19 13:35 Range/Units White Blood Count 11.2 H 4.3-11.0 10^3/uL Red Blood Count 5.19 4.35-5.85 10^6/uL Hemoglobin 15.0 13.3-17.7 G/DL Hematocrit 44 40-54 % Mean Corpuscular Volume 85 80-99 FL Mean Corpuscular Hemoglobin 29 25-34 PG Mean Corpuscular Hemoglobin Concent 34 32-36 G/DL Red Cell Distribution Width 14.1 10.0-14.5 % Platelet Count 286 130-400 10^3/uL Mean Platelet Volume 11.6 H 7.4-10.4 FL Neutrophils (%) (Auto) 59 42-75 % Lymphocytes (%) (Auto) 32 12-44 % Monocytes (%) (Auto) 7 0-12 % Eosinophils (%) (Auto) 2 0-10 % Basophils (%) (Auto) 0 0-10 % Neutrophils # (Auto) 6.6 1.8-7.8 X 10^3 Lymphocytes # (Auto) 3.5 1.0-4.0 X 10^3 Monocytes # (Auto) 0.8 0.0-1.0 X 10^3 Eosinophils # (Auto) 0.3 0.0-0.3 10^3/uL Basophils # (Auto) 0.0 0.0-0.1 10^3/uL Prothrombin Time 12.2 12.2-14.7 SEC INR Comment 0.9 0.8-1.4 Activated Partial Thromboplast Time 31 24-35 SEC Sodium Level 139 135-145 MMOL/L Potassium Level 4.0 3.6-5.0 MMOL/L Chloride Level 106 98-107 MMOL/L Carbon Dioxide Level 20 L 21-32 MMOL/L Anion Gap 13 5-14 MMOL/L Blood Urea Nitrogen 10 7-18 MG/DL Creatinine 0.88 0.60-1.30 MG/DL Estimat Glomerular Filtration Rate > 60 BUN/Creatinine Ratio 11 Glucose Level 147 H 70-105 MG/DL Calcium Level 9.1 8.5-10.1 MG/DL Corrected Calcium 8.8 8.5-10.1 MG/DL Magnesium Level 2.0 1.6-2.4 MG/DL Total Bilirubin 0.5 0.1-1.0 MG/DL Aspartate Amino Transf (AST/SGOT) 28 5-34 U/L Alanine Aminotransferase (ALT/SGPT) 21 0-55 U/L Alkaline Phosphatase 77 40-136 U/L Myoglobin 51.9 10.0-92.0 NG/ML Troponin I < 0.028 <0.028 NG/ML B-Type Natriuretic Peptide < 10.0 <100.0 PG/ML Total Protein 8.0 6.4-8.2 GM/DL Albumin 4.4 3.2-4.5 GM/DL My Orders Orders - AFSHIN MCFARLAND [employer]TERNAL [employer]INDER TOOL Cbc With Automated Diff (06/30/19 13:34) Magnesium (06/30/19 13:34) Chest 1 View, Ap/Pa Only (06/30/19 13:34) Ekg Tracing (06/30/19 13:34) Comprehensive Metabolic Panel (06/30/19 13:34) Myoglobin Serum (06/30/19 13:34) Protime With Inr (06/30/19 13:34) Partial Thromboplastin Time (06/30/19 13:34) O2 (06/30/19 13:34) Monitor-Rhythm Ecg Trace Only (06/30/19 13:34) Lipid Panel (07/01/19 06:00) Ed Iv/Invasive Line Start (06/30/19 13:34) BNP (06/30/19 13:34) Troponin I (06/30/19 13:34) Lorazepam Injection (Ativan Injection) (06/30/19 13:45) Medications Given in ED Current Medications Medications Dose Ordered Sig/Katherine Route Start Time Stop Time Status Last Admin Dose Admin Lorazepam 1 mg ONCE PRN IVP 06/30/19 13:45 06/30/19 13:43 1 MG Vital Signs/I&O 06/30/19 13:31 Temp 36.7 Pulse 105 Resp 22 B/P (MAP) 151/92 (111) Pulse Ox 98 O2 Delivery Room Air Departure Impression Primary Impression: Anxiety Additional Impression: chest pain Disposition: HOME, SELF-CARE Condition: Stable Departure-Patient Inst. Referrals: [facility] (PCP/Family) Primary Care Physician Patient Instructions: Anxiety, Adult (DC) Add. Discharge Instructions: 1. Return here for any concerns AFSHIN MCFARLAND [employer] TOOL Jun 30, 2019 13:38
--- OUTSIDE RECORDS SUMMARY | 2019-06-30 13:38 | XMS REPORT | Continuity of Care Document ---
Demographics Preferred Language Unknown Marital Status Unknown Religion Affiliation Unknown Race Unknown Ethnic Group Unknown Author Organization Unknown Address Unknown Phone Unavailable Allergies Active Description Code Type Severity Reaction Onset Reported/Identified Relationship to Patient Clinical Status Yes Amoxicillin Drug Allergy N/A N/A 05/27/2011 Yes Penicillins Drug Allergy N/A N/A 05/27/2011 Yes Penicillins [id number] Drug Aller gy Unknown N/A 03/12/2012 Medications There is no data. Problems Date Dx Coded Attending Type Code Diagnosis Diagnosed By 05/27/2011 BHAVYA RAMOS APRN V01.6 CONTACT WITH OR EXPOSURE TO VENEREAL DISEASES 11/19/2011 BHAVYA RAMOS APRN 346.90 MIGRAINE HEADACHE 11/19/2011 BHAVYA RAMOS APRN 692.9 DERMATITIS CONTACT UNSPECIFIED 03/12/2012 Ot 461.9 ACUT E SINUSITIS NOS 03/12/2012 Ot 784.0 HEAD ACHE 06/08/2012 BHAVYA RAMOS APRN 785.1 PALPITATIONS 06/08/2012 BHAVYA RAMOS APRN S 786.50 CHEST PAIN 06/08/2012 BHAVYA RAMOS APRN S V17.49 FAMILY HISTORY OF OTHER CARDIOVASCULAR DISEASES 06/08/2012 BHAVYA RAMOS APRN S V18.0 FAMILY HISTORY OF DIABETES MELLITUS 09/21/2014 AFSHIN MCFARLAND APRN Ot 300.00 ANXIETY STATE NOS 09/21/2014 AFSHIN MCFARLAND APRN Ot 786.50 CHEST PAIN NOS 02/14/2015 MAGNOLIA YANCEY, ROSE Christensen Ot R07.9 03/14/2015 LYNNE DHALIWAL Ot E78.5 03/14/2015 LYNNE DHALIWAL Ot I10 03/14/2015 LYNNE DHALIWAL Ot R07.9 03/14/2015 LYNNE DHALIWAL Ot Z82.49 05/17/2015 LULU WHITTEN Ot K04.7 PERIAPICAL ABSCESS WITHOUT SINUS 05/17/2015 LULU WHITTEN Ot K05.10 CHRONIC GINGIVITIS, PLAQUE INDUCED 05/19/2015 SAMINA CURTIS, LULU Benson Ot K04.7 05/19/2015 LULU WHITTEN Ot K05.10 06/28/2017 MAGNOLIA YANCEY, ROSE Christensen Ot R07.9 CHEST PAIN, UNSPECIFIED 06/28/2017 ADRIANA CURTIS, LYNNE Manuel Ot E78.5 HYPERLIPIDEMIA, UNSPECIFIED 06/28/2017 ADRIANA CURTIS, LYNNE Manuel Ot I10 ESSENTIAL (PRIMARY) HYPERTENSION 06/28/2017 ADRIANA CURTIS, LYNNE Manuel Ot R07.9 CHEST PAIN, UNSPECIFIED 06/28/2017 ADRIANA CURTIS, LYNNE Manuel Ot Z82.49 FAMILY HX OF ISCHEM HEART DIS AND OTH DI 09/09/2018 MAGNOLIA YANCEY, ROSE Christensen Ot R07.9 CHEST PAIN, UNSPECIFIED 09/09/2018 LYNNE DHALIWAL Ot E78.5 HYPERLIPIDEMIA, UNSPECIFIED 09/09/2018 LYNNE DHALIWAL Ot I10 ESSENTIAL (PRIMARY) HYPERTENSION 09/09/2018 LYNNE DHALIWAL Ot R07.9 CHEST PAIN, UNSPECIFIED 09/09/2018 LYNNE DHALIWAL Ot Z82.49 FAMILY HX OF ISCHEM HEART DIS AND OTH DI 09/09/2018 SPIVEY DO, JASON Ot E11.9 TYPE 2 DIABETES MELLITUS WITHOUT COMPLIC 09/09/2018 SPIVEY DO, JASON Ot E66.9 OBESITY, UNSPECIFIED 09/09/2018 SPIVEY DO, JASON Ot E78.00 PURE HYPERCHOLESTEROLEMIA, UNSPECIFIED 09/09/2018 SPIVEY DO, JASON Ot E78.1 PURE HYPERGLYCERIDEMIA 09/09/2018 SPIVEY DO, JASON Ot E78.5 HYPERLIPIDEMIA, UNSPECIFIED 09/09/2018 SPIVEY DO, JASON Ot E87.6 HYPOKALEMIA 09/09/2018 SPIVEY DO, JASON Ot F41.9 ANXIETY DISORDER, UNSPECIFIED 09/09/2018 SPIVEY DO, JASON Ot H91.90 UNSPECIFIED HEARING LOSS, UNSPECIFIED EA 09/09/2018 SPIVEY DO, JASON Ot I10 ESSENTIAL (PRIMARY) HYPERTENSION 09/09/2018 SPIVEY DO, JASON Ot L40.9 PSORIASIS, UNSPECIFIED 09/09/2018 SPIVEY DO, JASON Ot R07.9 CHEST PAIN, UNSPECIFIED 09/09/2018 SPIVEY DO, JASON Ot Z68.38 BODY MASS INDEX (BMI) 38.0-38.9, ADULT 09/09/2018 SPIVEY DO, JASON Ot Z79.84 INTERMEDIATE (CURRENT) USE OF ORAL HYPOGLYC 09/09/2018 SPIVEY DO, JASON Ot Z82.49 FAMILY HX OF ISCHEM HEART DIS AND OTH DI 09/09/2018 SPIVEY DO, JASON Ot Z87.89 1 PERSONAL HISTORY OF NICOTINE DEPENDENCE 09/09/2018 SPIVEY DO, JASON Ot E11.9 TYPE 2 DIABETES MELLITUS WITHOUT COMPLIC 09/09/2018 SPIVEY DO, JASON Ot E66.9 OBESITY, UNSPECIFIED 09/09/2018 SPIVEY DO, JASON Ot E78.00 PURE HYPERCHOLESTEROLEMIA, UNSPECIFIED 09/09/2018 SPIVEY DO, JASON Ot E78.1 PURE HYPERGLYCERIDEMIA 09/09/2018 SPIVEY DO, JASON Ot E78.5 HYPERLIPIDEMIA, UNSPECIFIED 09/09/2018 SPIVEY DO, JASON Ot E87.6 HYPOKALEMIA 09/09/2018 SPIVEY DO, JASON Ot F41.9 ANXIETY DISORDER, UNSPECIFIED 09/09/2018 SIPVEY DO, JASON Ot H91.90 UNSPECIFIED HEARING LOSS, UNSPECIFIED EA 09/09/2018 SPIVEY DO, JASON Ot I10 ESSENTIAL (PRIMARY) HYPERTENSION 09/09/2018 SPIEVY DO, JASON Ot L40.9 PSORIASIS, UNSPECIFIED 09/09/2018 SPIVEY DO, JASON Ot R07.9 CHEST PAIN, UNSPECIFIED 09/09/2018 SPIVEY DO, JASON Ot Z68.38 BODY MASS INDEX (BMI) 38.0-38.9, ADULT 09/09/2018 SPIVEY DO, JASON Ot Z79.84 INTERMEDIATE (CURRENT) USE OF ORAL HYPOGLYC 09/09/2018 SPIVEY DO, JASON Ot Z82.49 FAMILY HX OF ISCHEM HEART DIS AND OTH DI 09/09/2018 SPIVEY DO, JASON Ot Z87.89 1 PERSONAL HISTORY OF NICOTINE DEPENDENCE 09/11/2018 MAGNOLIA YANCEY, ROSE Christensen Ot R07.9 CHEST PAIN, UNSPECIFIED 09/11/2018 ADRIANA CURTIS, LYNNE Manuel Ot E78.5 HYPERLIPIDEMIA, UNSPECIFIED 09/11/2018 LYNNE DHALIWAL Ot I10 ESSENTIAL (PRIMARY) HYPERTENSION 09/11/2018 LYNNE DHALIWAL Ot R07.9 CHEST PAIN, UNSPECIFIED 09/11/2018 LYNNE DHALIWAL Ot Z82.49 FAMILY HX OF ISCHEM HEART DIS AND OTH DI 09/14/2018 SPIVEY DO, JASON Ot R03.0 ELEVATED BLOOD-PRESSURE READING, W/O LEENA 09/14/2018 SPIVEY DO, JASON Ot R07.9 CHEST PAIN, UNSPECIFIED 09/29/2018 ARCHIE, KATYA E TUBING TESTER Ot G47.10 HYPERSOMNIA, UNSPECIFIED 09/29/2018 ARCHIE, KATYA E TUBING TESTER Ot G47.50 PARASOMNIA, UNSPECIFIED 09/29/2018 ARCHIE, KATYA E TUBING TESTER Ot J30.9 ALLERGIC RHINITIS, UNSPECIFIED 09/29/2018 ARCHIE, KATYA E TUBING TESTER Ot R06.83 SNORING 10/02/2018 SPIVEY DO, JASON Ot R03.0 ELEVATED BLOOD-PRESSURE READING, W/O LEENA 10/02/2018 SPIVEY DO, JASON Ot R07.9 CHEST PAIN, UNSPECIFIED 01/08/2019 MAGNOLIA YANCEY, ROSE Christensen Ot R07.9 CHEST PAIN, UNSPECIFIED 01/08/2019 LYNNE DHALIWAL Ot E78.5 HYPERLIPIDEMIA, UNSPECIFIED 01/08/2019 LYNNE DHALIWAL Ot I10 ESSENTIAL (PRIMARY) HYPERTENSION 01/08/2019 LYNNE DHALIWAL Ot R07.9 CHEST PAIN, UNSPECIFIED 01/08/2019 LYNNE DHALIWAL Ot Z82.49 FAMILY HX OF ISCHEM HEART DIS AND OTH DI 01/08/2019 SPIVEY DO, JASON Ot R03.0 ELEVATED BLOOD-PRESSURE READING, W/O LEENA 01/08/2019 SPIVEY DO, JASON Ot R07.9 CHEST PAIN, UNSPECIFIED 01/08/2019 ARCHIE KATYA E TUBING TESTER Ot G47.10 HYPERSOMNIA, UNSPECIFIED 01/08/2019 ARCHIE, KATYA E TUBING TESTER Ot G47.50 PARASOMNIA, UNSPECIFIED 01/08/2019 ARCHIE, KATYA E TUBING TESTER Ot J30.9 ALLERGIC RHINITIS, UNSPECIFIED 01/08/2019 KATYA ALMANZA APRN Ot R06.83 SNORING 01/08/2019 ROSE VILLALBA MD Ot E11. 9 TYPE 2 DIABETES MELLITUS WITHOUT COMPLIC 01/08/2019 ORLY YANCEY, ROSE Ochoa Ot E78. 00 PURE HYPERCHOLESTEROLEMIA, UNSPECIFIED 01/08/2019 ROSE VILLALBA MD Ot F41. 9 ANXIETY DISORDER, UNSPECIFIED 01/08/2019 ROSE VILLALBA MD Ot I10 ESSENTIAL (PRIMARY) HYPERTENSION 01/08/2019 ROSE VILLALBA MD Ot J45.909 UNSPECIFIED ASTHMA, UNCOMPLICATED 01/08/2019 ROSE VILLALBA MD Ot R10. 13 EPIGASTRIC PAIN 01/08/2019 ROSE VILLALBA MD Ot R10. 9 UNSPECIFIED ABDOMINAL PAIN 01/08/2019 ROSE VILLALBA MD Ot Z79. 84 INTERMEDIATE (CURRENT) USE OF ORAL HYPOGLYC 01/08/2019 ROSE VILLALBA MD Ot Z82. 49 FAMILY HX OF ISCHEM HEART DIS AND OTH DI 01/08/2019 ROSE VILLALBA MD Ot Z87.891 PERSONAL HISTORY OF NICOTINE DEPENDENCE 01/08/2019 ROSE VILLALBA MD Ot Z88. 0 ALLERGY STATUS TO PENICILLIN 01/12/2019 ROSE VILLALBA MD Ot E11. 9 TYPE 2 DIABETES MELLITUS WITHOUT COMPLIC 01/12/2019 ROSE VILLALBA MD Ot E78. 00 PURE HYPERCHOLESTEROLEMIA, UNSPECIFIED 01/12/2019 ROSE VILLALBA MD Ot F41. 9 ANXIETY DISORDER, UNSPECIFIED 01/12/2019 ROSE VILLALBA MD Ot I10 ESSENTIAL (PRIMARY) HYPERTENSION 01/12/2019 ROSE VILLALBA MD Ot J45.909 UNSPECIFIED ASTHMA, UNCOMPLICATED 01/12/2019 ROSE VILLALBA MD Ot R10. 13 EPIGASTRIC PAIN 01/12/2019 ROSE VILLALBA MD Ot R10. 9 UNSPECIFIED ABDOMINAL PAIN 01/12/2019 ROSE VILLALBA MD Ot Z79. 84 INTERMEDIATE (CURRENT) USE OF ORAL HYPOGLYC 01/12/2019 ROSE VILLALBA MD Ot Z82. 49 FAMILY HX OF ISCHEM HEART DIS AND OTH DI 01/12/2019 ROSE VILLALBA MD Ot Z87.891 PERSONAL HISTORY OF NICOTINE DEPENDENCE 01/12/2019 ORLY YANCEY, ROSE Ochoa Ot Z88. 0 ALLERGY STATUS TO PENICILLIN Procedures Code Description [place] [address] EKG, TRACING (IN-HOUSE) 06/08/2012 28277 OXIMETRY 06/12/2012 Ulysses Flynn 06/12/2012 Results Test Result Range CBC With Differential/Platelet - 7 09:50 WBC 8.8 x10E3/uL 3.4-10.8 RBC 5.02 x10E6/uL 4.14-5.80 Hemoglobin 13.7 g/dL 12.6-17.7 Hematocrit 41.0 % 37.5-51.0 MCV 82 fL 79-97 MCH 27.3 pg 26.6-33.0 MCHC 33.4 g/dL 31.5-35.7 RDW 14.3 % 12.3-15.4 Platelets 294 x10E3/uL 150-379 Neutrophils 62 % Lymphs 30 % Monocytes 5 % Eos 2 % Basos 1 % Neutrophils (Absolute) 5.5 x10E3/uL 1.4- 7.0 Lymphs (Absolute) 2.6 x10E3/uL 0.7-3.1 Monocytes(Absolute) 0.4 x10E3/uL 0.1-0.9 Eos (Absolute) 0.2 x10E3/uL 0.0-0.4 Baso (Absolute) 0.1 x10E3/uL 0.0-0.2 Immature Granulocytes 0 % Immature Grans (Abs) 0.0 x10E3/uL 0.0-0. 1 Comp. Metabolic Panel (14) - 09/15/16 09 :50 Glucose, Serum 147 mg/dL 65-99 BUN 10 mg/dL 6-20 Creatinine, Serum 0.76 mg/dL 0.76-1.27 eGFR If NonAfricn Am 123 mL/min/1.73 >59 eGFR If Africn Am 143 mL/min/1.73 >5 9 BUN/Creatinine Ratio 13 9-20 Sodium, Serum 138 mmol/L 134-144 Potassium, Serum 4.2 mmol/L 3.5-5.2 Chloride, Serum 99 mmol/L 96-106 Carbon Dioxide, Total 21 mmol/L 18-29 Calcium, Serum 8.9 mg/dL 8.7-10.2 Protein, Total, Serum 7.1 g/dL 6.0-8.5 Albumin, Serum 3.9 g/dL 3.5-5.5 Globulin, Total 3.2 g/dL 1.5-4.5 A/G Ratio 1.2 1.2-2.2 Bilirubin, Total 0.3 mg/dL 0.0-1.2 Alkaline Phosphatase, S 101 IU/L 39-117 AST (SGOT) 16 IU/L 0-40 ALT (SGPT) 12 IU/L 0-44 Lipid Panel - 09/15/16 09:50 Cholesterol, Total 148 mg/dL 100-199 Triglycerides 512 mg/dL 0-149 HDL Cholesterol 18 mg/dL >39 VLDL Cholesterol Jamarcus Comment mg/dL 5-40 LDL Cholesterol Calc Comment mg/dL 0-99 Hemoglobin A1c - 09/15/16 09:50 Hemoglobin A1c 7.3 % 4.8-5.6 Thyroid [place] Profile - 09/15/16 09:50 TSH 1.940 uIU/mL 0.450-4.500 LIPID PANEL - 01/19/17 10:55 CHOLESTEROL, TOTAL 114 mg/dL <200 HDL CHOLESTEROL 25 mg/dL >40 TRIGLYCERIDES 107 mg/dL <150 LDL-CHOLESTEROL 70 mg/dL (calc) NRG CHOL/HDLC RATIO 4.6 (calc) <5.0 NON HDL CHOLESTEROL 89 mg/dL (calc) <130 THYROID ANALYZER - 12/02/17 11:50 TSH 1.15 mIU/L 0.40-4.50 INSULIN LEVEL - 12/02/17 11:50 INSULIN 18.8 uIU/mL 2.0-19.6 Complete blood count (CBC) with automate d white blood cell (WBC) differential - 09/08/18 21:28 Blood leukocytes automated count (number/volume) 10.3 10*3/uL 4.3-11.0 Blood erythrocytes automated count (number/volume) 4.58 10*6/uL 4.35-5.85 Venous blood hemoglobin measurement (mass/volume) 12.9 g/dL 13.3-17.7 Blood hematocrit (volume fraction) 39 % 40-54 Automated erythrocyte mean corpuscular volume 85 [ foz_us] 80-99 Automated erythrocyte mean corpuscular h emoglobin (mass per erythrocyte) 28 pg 25-34 Automated erythrocyte mean corpuscular h emoglobin concentration measurement (mass/volume) 33 g/dL 32-36 Automated erythrocyte distribution width ratio 13. 8 % 10.0- 14.5 Automated blood platelet count (count/volume) 291 10*3/uL 130-400 Automated blood platelet mean volume measurement 11.4 [foz_us] 7.4-10.4 Automated blood neutrophils/100 leukocytes 76 % 42-75 Automated blood lymphocytes/100 leukocytes 17 % 12-44 Blood monocytes/100 leukocytes 4 % 0-12 Automated blood eosinophils/100 leukocytes 2 % 0-10 Automated blood basophils/100 leukocytes 1 % 0-10 Blood neutrophils automated count (number/volume) 7.8 10*3 1.8-7.8 Blood lymphocytes automated count (number/volume) 1.8 10*3 1.0-4.0 Blood monocytes automated count (number/volume) 0. 4 10*3 0.0-1.0 Automated eosinophil count 0.2 10*3/uL 0 .0-0.3 Automated blood basophil count (count/volume) 0.1 10*3/uL 0.0-0.1 Fibrin D-dimer FEU measurement in platel et poor plasma (mass/volume) - 09/08/18 21:28 Fibrin D-dimer FEU measurement in platelet poor plasma (mass/volume) 0.64 ug/mL 0.00-0.49 PT panel in platelet poor plasma by coag ulation assay - 09/08/18 21:28 Prothrombin time (PT) in platelet poor plasma by coagu lation assay 13.0 s 12.2-14.7 INR in platelet poor plasma or blood by coagulation as say 1.0 0.8-1.4 Activated partial thromboplastin time (a PTT) in platelet poor plasma bycoagulation assay - 09/08/18 21:28 Activated partial thromboplastin time (a PTT) in platelet poor plasma bycoagulation assay 30 s 24-35 Comprehensive metabolic panel - 09/08/18 21:28 Serum or plasma sodium measurement (moles/volume) 138 mmol/L 135-145 Serum or plasma potassium measurement (moles/volume) 3.5 mmol/L 3.6-5.0 Serum or plasma chloride measurement (moles/volume) 105 mmol/L 98-107 Carbon dioxide 20 mmol/L 21-32 Serum or plasma anion gap determination (moles/volume) 13 mmol/L 5-14 Serum or plasma urea nitrogen measurement (mass/volume ) 10 mg/dL 7-18 Serum or plasma creatinine measurement (mass/volume) 0.93 mg/dL 0.60-1.30 Serum or plasma urea nitrogen/creatinine mass ratio 11 NRG Serum or plasma creatinine measurement w ith calculation of estimated glomerular filtration rate > NRG Serum or plasma glucose measurement (mass/volume) 131 mg/dL 70-105 Serum or plasma calcium measurement (mass/volume) 8.8 mg/dL 8.5-10.1 Serum or plasma total bilirubin measurement (mass/volu me) 0.3 mg/dL 0.1-1.0 Serum or plasma alkaline phosphatase porsche surement (enzymatic activity/volume) 107 U/L 40-136 Serum or plasma aspartate aminotransfera se measurement (enzymatic activity/volume) 22 U/L 5-34 Serum or plasma alanine aminotransferase measurement (enzymatic activity/volume) 19 U/L 0-55 Serum or plasma protein measurement (mass/volume) 7.4 g/dL 6.4-8.2 Serum or plasma albumin measurement (mass/volume) 4.1 g/dL 3.2-4.5 CALCIUM CORRECTED 8.7 mg/dL 8.5-10.1 Magnesium - 09/08/18 21:28 Magnesium 2.2 mg/dL 1.8-2.4 Serum or plasma troponin i.cardiac measu rement (mass/volume) - 09/08/18 21:28 Serum or plasma troponin i.cardiac measurement (mass/v olume) < ng/mL <0.028 Serum or plasma lithium measurement (mol es/volume) - 09/08/18 21:28 BNP PT 21.7 pg/mL <100.0 Myoglobin, serum - 09/08/18 21:28 Myoglobin, serum 72.8 ng/mL 10.0-92.0 Lipase - 09/08/18 21:28 Lipase 40 U/L 8-78 Complete urinalysis with reflex to cultu re - 09/08/18 22:35 Urine color determination YELLOW NRG Urine clarity determination CLEAR NR G Urine pH measurement by test strip 5 5-9 Specific gravity of urine by test strip 1.020 1.016-1.022 Urine protein assay by test strip, semi-quantitative 1+ NEGATIVE Urine glucose detection by automated test strip NE GATIVE NEGATIVE Erythrocytes detection in urine sediment by light micr oscopy NEGATIVE NEGATIVE Urine ketones detection by automated test strip NE GATIVE NEGATIVE Urine nitrite detection by test strip NEGATIVE NEGATIVE Urine total bilirubin detection by test strip NEGA TIVE NEGATIVE Urine urobilinogen measurement by automated test strip (mass/volume) NORMAL NORMAL Urine leukocyte esterase detection by dipstick NEG ATIVE NEGATIVE Automated urine sediment erythrocyte cou nt by microscopy (number/high power field) NONE NRG Automated urine sediment leukocyte count by microscopy (number/high power field) RARE NRG Bacteria detection in urine sediment by light microsco py TRACE NRG Squamous epithelial cells detection in u rine sediment by light microscopy RARE NRG Crystals detection in urine sediment by light microsco py NONE NRG Casts detection in urine sediment by light microscopy NONE NRG Mucus detection in urine sediment by light microscopy MODERATE NRG Complete urinalysis with reflex to culture NO NRG Urine drug screening test - 09/08/18 22: 35 Urine phencyclidine detection by screening method NEGATIVE NEGATIVE Urine benzodiazepines detection by screening method NEGATIVE NEGATIVE Urine cocaine detection NEGATIVE NEGATI VE Urine amphetamines detection by screening method N EGATIVE NEGATIVE Urine methamphetamine detection by screening method NEGATIVE NEGATIVE Urine cannabinoids detection by screening method P OSITIVE NEGATIVE Urine opiates detection by screening method NEGATI VE NEGATIVE Urine barbiturates detection NEGATIVE N EGATIVE Screening urine tricyclic antidepressants detection NEGATIVE NEGATIVE Urine methadone detection by screening method NEGA TIVE NEGATIVE Urine oxycodone detection NEGATIVE NEGA TIVE Urine propoxyphene detection NEGATIVE N EGATIVE Serum or plasma troponin i.cardiac measu rement (mass/volume) - 09/09/18 02:01 Serum or plasma troponin i.cardiac measurement (mass/v olume) < ng/mL <0.028 Capillary blood glucose measurement by g lucometer (mass/volume) - 09/09/18 05:30 Capillary blood glucose measurement by glucometer (mas s/volume) 116 mg/dL 70-110 Serum or plasma troponin i.cardiac measu rement (mass/volume) - 09/09/18 08:05 Serum or plasma troponin i.cardiac measurement (mass/v olume) < ng/mL <0.028 Lipid 1996 panel - 09/09/18 08:05 Serum or plasma triglyceride measurement (mass/volume) 353 mg/dL <150 Serum or plasma cholesterol measurement (mass/volume) 121 mg/dL < 200 Serum or plasma cholesterol in HDL measurement (mass/v olume) 20 mg/dL 40-60 Cholesterol in LDL [mass/volume] in serum or plasma by direct assay 44 mg/dL 1-129 Serum or plasma cholesterol in VLDL measurement (mass/ volume) 71 mg/dL 5-40 Capillary blood glucose measurement by g lucometer (mass/volume) - 09/09/18 11:01 Capillary blood glucose measurement by glucometer (mas s/volume) 100 mg/dL 70-110 Arterial blood gas measurement - 9 09:30 Blood pCO2 40 mm[Hg] 35-45 Blood pO2 89 mm[Hg] 79-93 Arterial blood bicarbonate measurement (moles/volume) 25 mmol/L 23-27 Arterial blood base excess by calculation 0.1 mmol /L -2.5-2.5 Arterial blood oxygen saturation measurement 98 % 94-100 * Inhaled oxygen flow rate ROOM AIR NRG Arterial blood pH measurement with patient temperature correction 7.40 7.37-7.43 Arterial blood carbon dioxide, total measurement (mole s/volume) 25.7 mmol/L 21.0-31.0 Body site L RAD NRG Assessment of wrist artery patency prior to arterial p uncture YES-POS NRG Setting of ventilation mode NO NR G Measurement of body temperature 97.3 NRG Complete blood count (CBC) with automate d white blood cell (WBC) differential - 01/08/19 06:10 Blood leukocytes automated count (number/volume) 9.5 10*3/uL 4.3-11.0 Blood erythrocytes automated count (number/volume) 4.95 10*6/uL 4.35-5.85 Venous blood hemoglobin measurement (mass/volume) 13.7 g/dL 13.3-17.7 Blood hematocrit (volume fraction) 41 % 40-54 Automated erythrocyte mean corpuscular volume 83 [ foz_us] 80-99 Automated erythrocyte mean corpuscular h emoglobin (mass per erythrocyte) 28 pg 25-34 Automated erythrocyte mean corpuscular h emoglobin concentration measurement (mass/volume) 33 g/dL 32-36 Automated erythrocyte distribution width ratio 13. 7 % 10.0- 14.5 Automated blood platelet count (count/volume) 269 10*3/uL 130-400 Automated blood platelet mean volume measurement 12.3 [foz_us] 7.4-10.4 Automated blood neutrophils/100 leukocytes 50 % 42-75 Automated blood lymphocytes/100 leukocytes 39 % 12-44 Blood monocytes/100 leukocytes 7 % 0-12 Automated blood eosinophils/100 leukocytes 3 % 0-10 Automated blood basophils/100 leukocytes 1 % 0-10 Blood neutrophils automated count (number/volume) 4.8 10*3 1.8-7.8 Blood lymphocytes automated count (number/volume) 3.7 10*3 1.0-4.0 Blood monocytes automated count (number/volume) 0. 7 10*3 0.0-1.0 Automated eosinophil count 0.3 10*3/uL 0 .0-0.3 Automated blood basophil count (count/volume) 0.1 10*3/uL 0.0-0.1 Complete urinalysis with reflex to cultu re - 01/08/19 06:10 Urine color determination YELLOW NRG Urine clarity determination CLEAR NR G Urine pH measurement by test strip 6.5 5-9 Specific gravity of urine by test strip 1.010 1.016-1.022 Urine protein assay by test strip, semi-quantitative NEGATIVE NEGATIVE Urine glucose detection by automated test strip NE GATIVE NEGATIVE Erythrocytes detection in urine sediment by light micr oscopy NEGATIVE NEGATIVE Urine ketones detection by automated test strip NE GATIVE NEGATIVE Urine nitrite detection by test strip NEGATIVE NEGATIVE Urine total bilirubin detection by test strip NEGA TIVE NEGATIVE Urine urobilinogen measurement by automated test strip (mass/volume) NORMAL NORMAL Urine leukocyte esterase detection by dipstick 1+ NEGATIVE Automated urine sediment erythrocyte cou nt by microscopy (number/high power field) NONE NRG Automated urine sediment leukocyte count by microscopy (number/high power field) [HPF] NRG Bacteria detection in urine sediment by light microsco py NEGATIVE NRG Squamous epithelial cells detection in u rine sediment by light microscopy 0-2 NRG Crystals detection in urine sediment by light microsco py NONE NRG Casts detection in urine sediment by light microscopy NONE NRG Mucus detection in urine sediment by light microscopy NEGATIVE NRG Complete urinalysis with reflex to culture NO NRG Comprehensive metabolic panel - 01/08/19 06:10 Serum or plasma sodium measurement (moles/volume) 135 mmol/L 135-145 Serum or plasma potassium measurement (moles/volume) 3.1 mmol/L 3.6-5.0 Serum or plasma chloride measurement (moles/volume) 104 mmol/L 98-107 Carbon dioxide 20 mmol/L 21-32 Serum or plasma anion gap determination (moles/volume) 11 mmol/L 5-14 Serum or plasma urea nitrogen measurement (mass/volume ) 8 mg/dL 7-18 Serum or plasma creatinine measurement (mass/volume) 0.78 mg/dL 0.60-1.30 Serum or plasma urea nitrogen/creatinine mass ratio 10 NRG Serum or plasma creatinine measurement w ith calculation of estimated glomerular filtration rate > NRG Serum or plasma glucose measurement (mass/volume) 107 mg/dL 70-105 Serum or plasma calcium measurement (mass/volume) 8.6 mg/dL 8.5-10.1 Serum or plasma total bilirubin measurement (mass/volu me) 0.2 mg/dL 0.1-1.0 Serum or plasma alkaline phosphatase porsche surement (enzymatic activity/volume) 80 U/L 40-136 Serum or plasma aspartate aminotransfera se measurement (enzymatic activity/volume) 15 U/L 5-34 Serum or plasma alanine aminotransferase measurement (enzymatic activity/volume) 11 U/L 0-55 Serum or plasma protein measurement (mass/volume) 6.9 g/dL 6.4-8.2 Serum or plasma albumin measurement (mass/volume) 3.9 g/dL 3.2-4.5 CALCIUM CORRECTED 8.7 mg/dL 8.5-10.1 Serum or plasma amylase measurement (enz ymatic activity/volume) - 01/08/19 06:10 Serum or plasma amylase measurement (enzymatic activit y/volume) 52 U/L 25-125 Serum Helicobacter pylori antibody assay (units/volume) - 01/08/19 06:10 Helicobacter pylori ab [units/volume] in serum 0.40 u[iU]/mL 0.00-0.79 Interpretation of Helicobacter pylori IgG antibody ass ay Negative Negative CMP - 05/01/19 10:11 GLUCOSE 98 mg/dL 65-99 UREA NITROGEN (BUN) 14 mg/dL 7-25 CREATININE 0.91 mg/dL 0.60-1.35 eGFR NON-AFR. YEMENI 111 mL/min/1.73m2 > OR = 60 eGFR 129 mL/min/1.73m2 > OR = 60 BUN/CREATININE RATIO NOT APPLICABLE (calc) 6-22 SODIUM 138 mmol/L 135-146 POTASSIUM 4.4 mmol/L 3.5-5.3 CHLORIDE 104 mmol/L 98-110 CARBON DIOXIDE 26 mmol/L 20-32 CALCIUM 9.3 mg/dL 8.6-10.3 PROTEIN, TOTAL 7.3 g/dL 6.1-8.1 ALBUMIN 4.3 g/dL 3.6-5.1 GLOBULIN 3.0 g/dL (calc) 1.9-3.7 ALBUMIN/GLOBULIN RATIO 1.4 (calc) 1.0-2. 5 BILIRUBIN, TOTAL 0.6 mg/dL 0.2-1.2 ALKALINE PHOSPHATASE 76 U/L 36-130 AST 19 U/L 10-40 ALT 9 U/L 9-46 Encounters ACCT No. Visit Date/Time Discharge Status Pt. Type Provider Facility Loc./Unit Complaint [id number] 09/16/2016 15:09:00 Document Registration [id number] 01/08/2019 05:24:00 07:52:00 DIS Emergency ORLY YANCEY, ROSE Ochoa [facility] ER ABD PAIN, VOMITING, TOO TH PAIN [id number] 10/03/2018 09:06:00 23:59:59 CLS Preadmit KATYA ALMANZA APRN [facility] RT DYSPNEA,PARASOMNIA,HYPERSOMNIA [id number] 10/02/2018 16:50:00 23:59:59 CLS Preadmit KATYA ALMANZA APRN [facility] SLEEP PARASOMNIA, UNS PECIFIED [id number] 09/25/2018 09:11:00 23:59:59 CLS Outpatient KATYA ALMANZA APRN [facility] LAB ABG [id number] 09/11/2018 07:33:00 23:59:59 CLS Outpatient JASON SPIVEY DO [facility] CARD CP [id number] 09/08/2018 21:22:00 16:46:00 DIS Inpatient JASON SPIVEY DO [facility] 4TH CP R/O ACS [id number] 07/21/2017 12:15:00 23:59:59 CLS Preadmit RAFAEL LINTONELE Alice [employer] [facility] REHAB L SHOULDER PAIN [id number] 05/17/2015 15:53:00 016 18:32:00 DIS Emergency LULU WHITTEN [facility] ER R SIDE DENTAL PAIN/SWE LLING [id number] 03/03/2015 10:33:00 23:59:59 CLS Outpatient MALKA DHALIWAL [facility] CARD CP,FAMILY H X OF CAD [id number] 02/03/2015 15:15:00 23:59:59 CLS Outpatient ROSE MERIDA MD [facility] CARD FAMILY HX CAD,CP [id number] 09/21/2014 10:57:00 12:17:00 DIS Emergency AFSHIN MCFARLAND [employer] [facility] ER CHEST PAIN [id number] 03/12/2012 19:15:00 Document Registration [id number] 06/08/2012 16:28:00 06/08/2012 23:59: 59 CLS Outpatient BHAVYA RAMOS APRN [id number] 06/28/2019 09:20:00 ACT Outpatient [facility] [id number] 05/01/2019 08:40:00 Document Registration [id number] 12/02/2017 10:40:00 Document Registration [id number] 01/19/2017 11:00:00 Document Registration
[2019-06-30 13:44] LABS: BASOPHILS % (AUTO) 0 % (0-10); EOSINOPHILS # (AUTO) 0.3 10^3/uL (0.0-0.3); EOSINOPHILS % (AUTO) 2 % (0-10); HEMATOCRIT 44 % (40-54); LYMPHOCYTES # (AUTO) 3.5 X 10^3 (1.0-4.0); LYMPHOCYTES % (AUTO) 32 % (12-44); MEAN CORPUSCULAR HEMOGLOBIN 29 PG (25-34); MEAN CORPUSCULAR HGB CONC 34 G/DL (32-36); MEAN CORPUSCULAR VOLUME 85 FL (80-99); MEAN PLATELET VOLUME 11.6 FL (7.4-10.4); MONOCYTES # (AUTO) 0.8 X 10^3 (0.0-1.0); MONOCYTES % (AUTO) 7 % (0-12); NEUTROPHILS # (AUTO) 6.6 X 10^3 (1.8-7.8); NEUTROPHILS % (AUTO) 59 % (42-75); PLATELET COUNT 286 10^3/uL (130-400); RED CELL DISTRIBUTION WIDTH 14.1 % (10.0-14.5); WHITE BLOOD COUNT 11.2 10^3/uL (4.3-11.0)
[2019-06-30] MEDS ORDERED: LORazepam INJ 2 MG/ML (ATIVAN) VIAL IVP PRN (13:45)
[2019-06-30 13:57] LABS: ALBUMIN 4.4 GM/DL (3.2-4.5); CHLORIDE 106 MMOL/L (98-107); INR 0.9 (0.8-1.4); PROTHROMBIN TIME PATIENT 12.2 SEC (12.2-14.7); SODIUM 139 MMOL/L (135-145)
[2019-06-30 13:59] LABS: CALCIUM 9.1 MG/DL (8.5-10.1)
[2019-06-30 14:00] LABS: GLUCOSE 147 MG/DL (70-105)
[2019-06-30 14:01] LABS: CARBON DIOXIDE 20 MMOL/L (21-32)
[2019-06-30 14:02] LABS: BILIRUBIN,TOTAL 0.5 MG/DL (0.1-1.0)
[2019-06-30 14:03] LABS: ALKALINE PHOSPHATASE 77 U/L (40-136)
[2019-06-30 14:04] LABS: CREATININE SERUM 0.88 MG/DL (0.60-1.30); GFR ESTIMATED > 60
[2019-06-30 14:05] LABS: BUN/CREATININE RATIO 11
[2019-06-30 14:06] LABS: ALANINE AMINOTRANSFERASE 21 U/L (0-55)
--- NOTE | 2019-06-30 14:18 | Diagnostic Imaging Report ---
EXAM: CHEST 1 VIEW, AP/PA ONLY INDICATION: Chest pain. COMPARISON: CTA chest 09/08/2018. FINDINGS: Normal heart size and central pulmonary vascularity. No focal pulmonary opacity, pleural effusion or pneumothorax. No acute osseous findings. IMPRESSION: No acute cardiopulmonary findings. Dictated by: Dictated on workstation # [id number]
[2019-06-30 14:30] VITALS: BP 111/63
== END 2019-06-30 14:35 | disposition home or self-care (01) ==
LOC: EDUNIT# 13:31 → ER 13:32
DX: F41.9 Anxiety disorder, unspecified (principal); R07.89 Other chest pain; I10 Essential (primary) hypertension; E78.00 Pure hypercholesterolemia, unspecified; E11.9 Type 2 diabetes mellitus without complications; Z88.0 Allergy status to penicillin
CPT/HCPCS: 36415; 71045; 80053; 83735; 83874; 83880; 84484; 85025; 85610; 85730; 93041

== ENCOUNTER 2020-06-20 11:30 | Emergency (ER) | payer SELFPAY ==
[~2020-06-20] VITALS: Ht 180 cm; Wt 111.0 kg
[~2020-06-20 11:30] MED LIST changes: -LISI-552 PO; +LISI20TA26 PO
[2020-06-20 11:38] VITALS: BP 148/71
--- NOTE | 2020-06-20 11:47 | ED General ---
General Stated Complaint: RECTAL PAIN Source of Information: Patient Exam Limitations: No Limitations History of Present Illness Date Seen by Provider: Jun 20, 2020 Time Seen by Provider: 11:41 Initial Comments To ER with rectal pain, occasional blood on toilet paper, pain with bowel movements for about 2 months. He saw [facility] at the onset of this and was given some Preparation H. Timing/Duration: 1-2 Days Severity: Moderate Allergies and Home Medications Allergies Coded Allergies: Penicillins (Verified Allergy, Unknown, 03/12/12) Home Medications Atorvastatin Calcium 20 Mg Tablet, 20 MG PO DAILY Prescribed by: BERTA MCMILLAN on 09/09/18 1401 Docusate Sodium 100 Mg Capsule, 100 MG PO BID Prescribed by: AFSHIN MCFARLAND on 06/20/20 1149 Hydrocodone/Acetaminophen 1 Each Tablet, 1 TAB PO Q4H PRN for PAIN-MODERATE (5- 7) Prescribed by: FASHIN MCFARLAND on 06/20/20 1150 Lidocaine 15 Gm Cream..g., 1 GM TP TID PRN for PAIN-MILD (1-4) Prescribed by: AFSHIN MCFARLAND on 06/20/20 1149 Lisinopril 20 Mg Tablet, 20 MG PO DAILY, (Reported) Metoprolol Succinate 50 Mg Tab.er.24h, 50 MG PO DAILY, (Reported) Sucralfate 1 Gm Tablet, 1 GM PO QID Prescribed by: ROSE VILLALBA MD on 01/08/19 0742 Tramadol HCl 50 Mg Tablet, 50 MG PO Q4H PRN for PAIN Prescribed by: LULU HAAS on 05/17/15 1824 Patient Home Medication List Home Medication List Reviewed: Yes Review of Systems Review of Systems Constitutional: see HPI EENTM: see HPI Respiratory: no symptoms reported Cardiovascular: no symptoms reported Genitourinary: no symptoms reported Musculoskeletal: no symptoms reported Skin: no symptoms reported Psychiatric/Neurological: No Symptoms Reported Hematologic/Lymphatic: No Symptoms Reported Immunological/Allergic: no symptoms reported Past Piknruj-Ktllut-Lcdjxv Hx Patient Social History Drug of Choice: MARIJUANA Type Used: Cigarettes Recent Hopitalizations: No Immunizations Up To Date Tetanus Booster (TDap): Less than 5yrs Seasonal Allergies Seasonal Allergies: No Past Medical History Surgeries: Yes Gallbladder Respiratory: Yes Asthma Cardiac: Yes High Cholesterol, Hypertension Neurological: No Reproductive Disorders: No Sexually Transmitted Disease: No HIV/AIDS: No Genitourinary: No Gastrointestinal: Yes Hiatal Hernia Musculoskeletal: No Endocrine: Yes Diabetes, Non-Insulin dep HEENT: No Hearing Impairment: Hard of Hearing Cancer: No Psychosocial: Yes Anxiety Integumentary: No Psoriasis Blood Disorders: No Adverse Reaction/Blood Tranf: No Family Medical History No Pertinent Family Hx Physical Exam Vital Signs Vital Signs - First Documented 06/20/20 11:38 Temp 37.0 Pulse 64 Resp 16 B/P (MAP) 148/71 (96) Pulse Ox 97 O2 Delivery Room Air Capillary Refill : Height, Weight, BMI Height: 5'11.00" Weight: 275lbs. 6.0oz. 124.316558dm; 35.00 BMI Method:Stated General Appearance: No Apparent Distress, WD/WN Eyes: Bilateral Eye Normal Inspection, Bilateral Eye PERRL, Bilateral Eye EOMI Respiratory: No Accessory Muscle Use, No Respiratory Distress Cardiovascular: Regular Rate, Rhythm, Normal Peripheral Pulses Gastrointestinal: Normal Bowel Sounds, Non Tender, Soft Genital/Rectal: Other (Exam with Jayne RN at the bedside. There is a posterior midline subacute anal fissure. There is a small sentinel pile.) Extremity: Normal Capillary Refill, Normal Inspection Neurologic/Psychiatric: Alert, Oriented x3 Skin: Normal Color, Warm/Dry Progress/Results/Core Measures Suspected Sepsis SIRS Temperature: Pulse: Respiratory Rate: Blood Pressure / Mean: Results/Orders Vital Signs/I&O 06/20/20 11:38 Temp 37.0 Pulse 64 Resp 16 B/P (MAP) 148/71 (96) Pulse Ox 97 O2 Delivery Room Air Capillary Refill : Departure Communication (Admissions) I also called in a prescription for nifedipine ointment 0.2% to be compounded at [facility] pharmacy Impression Primary Impression: Anal fissure Disposition: 01 HOME, SELF-CARE Condition: Stable Departure-Patient Inst. Decision time for Depature: 11:46 Referrals: [facility]/JESSICA (PCP) Primary Care Physician JEAN WILEY APRN (Family) Primary Care Physician Patient Instructions: Anal Fissure Add. Discharge Instructions: 1. Apply the topical cream 3 times a day for 2 weeks. Apply the topical numbing medication also 3 times a day as needed. Take a stool softener as directed and the pain medication. Increase your water intake to help soften your stools in addition to using the stool softener. The pain medication can be used but use it as sparingly as possible because it will be constipating which may worsen your symptoms. Scripts Lidocaine (Lidocaine) 15 Gm Cream..g. 1 GM TP TID PRN for PAIN-MILD (1-4), #1 TUBE Prov: AFSHIN MCFARLAND APRN 06/20/20 Docusate Sodium (Colace) 100 Mg Capsule 100 MG PO BID, #14 CAP Prov: AFSHIN MCFARLAND APRN 06/20/20 Hydrocodone/Acetaminophen (Hydrocodone-Acetamin 5-325 mg) 1 Each Tablet 1 TAB PO Q4H PRN for PAIN-MODERATE (5-7), #10 TAB Prov: AFSHIN MCFARLAND APRN 06/20/20 AFSHIN MCFARLAND APRN Jun 20, 2020 11:46
[2020-06-20] MEDS ORDERED: LIDO15CR9 TP (11:49)
[2020-06-20] MEDS ORDERED: ACHD5005 PO (11:49)
[2020-06-20] MEDS ORDERED: DOCU-143 PO (11:49)
== END 2020-06-20 11:53 | disposition home or self-care (01) ==
LOC: EDUNIT# 11:30 → ER 11:31
DX: K60.2 Anal fissure, unspecified (principal); J45.909 Unspecified asthma, uncomplicated; I10 Essential (primary) hypertension; E78.00 Pure hypercholesterolemia, unspecified; E11.9 Type 2 diabetes mellitus without complications; Z88.0 Allergy status to penicillin
CPT/HCPCS: 99282

== ENCOUNTER 2020-07-29 12:33 | Emergency (ER) | payer SELFPAY ==
[~2020-07-29] VITALS: Ht 180.3 cm; Wt 108.9 kg
[~2020-07-29 12:33] MED LIST changes: +ACHD5005 PO; +DOCU-143 PO; +LIDO15CR9 TP
--- NOTE | 2020-07-29 12:53 | ED Cardiac General ---
History of Present Illness General Chief Complaint: Cardiac/General Problems Stated Complaint: HIGH HR Nursing Triage Note: PT AMBULATE TO ROOM 03 WITH C/O TACHYCARDIA. Source: patient Exam Limitations: no limitations History of Present Illness Date Seen by Provider: July 29, 2020 Time Seen by Provider: 12:51 Initial Comments To ER with reports of palpitations and tachycardia that seems worse when he standing up x30 minutes. No fevers no chills. No cough no shortness of breath. History of anxiety but states that typically that resolves on its own and today does not. 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 ASA po GENERAL MERCHANDISE SALESPERSON: No Associated Systoms: Denies Symptoms, Nausea/Vomiting Allergies and Home Medications Allergies Coded Allergies: Penicillins (Verified Allergy, Unknown, 03/12/12) Home Medications Atorvastatin Calcium 20 Mg Tablet, 20 MG PO DAILY Prescribed by: BERTA MCMILLAN on 09/09/18 1401 Docusate Sodium 100 Mg Capsule, 100 MG PO BID Prescribed by: AFSHIN MCFARLAND on 06/20/20 1149 Hydrocodone/Acetaminophen 1 Each Tablet, 1 TAB PO Q4H PRN for PAIN-MODERATE (5- 7) Prescribed by: AFSHIN MCFARLAND on 06/20/20 1150 Lidocaine 15 Gm Cream..g., 1 GM TP TID PRN for PAIN-MILD (1-4) Prescribed by: AFSHIN MCFARLAND on 06/20/20 1149 Lisinopril 20 Mg Tablet, 20 MG PO DAILY, (Reported) Metoprolol Succinate 50 Mg Tab.er.24h, 50 MG PO DAILY, (Reported) Sucralfate 1 Gm Tablet, 1 GM PO QID Prescribed by: ROSE VILLALBA MD on 01/08/19 0742 Tramadol HCl 50 Mg Tablet, 50 MG PO Q4H PRN for PAIN Prescribed by: LULU HAAS on 05/17/15 1824 Patient Home Medication List Home Medication List Reviewed: Yes Review of Systems Review of Systems Constitutional: see HPI EENTM: No Symptoms Reported Respiratory: No Symptoms Reported Cardiovascular: No Symptoms Reported Gastrointestinal: No Symptoms Reported Genitourinary: No Symptoms Reported Musculoskeletal: no symptoms reported Skin: no symptoms reported Psychiatric/Neurological: No Symptoms Reported Endocrine: No Symptoms Reported Hematologic/Lymphatic: No Symptoms Reported Past Oxzwhxn-Uagbci-Zadfby Hx Patient Social History Alcohol Use: Rarely Uses Drug of Choice: MARIJUANA Smoking Status: Former Smoker Type Used: Cigarettes 2nd Hand Smoke Exposure: No Recent Infectious Disease Expo: No Recent Hopitalizations: No Immunizations Up To Date Tetanus Booster (TDap): Less than 5yrs Seasonal Allergies Seasonal Allergies: No Past Medical History Surgeries: Yes Gallbladder Respiratory: Yes Asthma Cardiac: Yes High Cholesterol, Hypertension Neurological: No Reproductive Disorders: No Sexually Transmitted Disease: No HIV/AIDS: No Genitourinary: No Gastrointestinal: Yes Hiatal Hernia Musculoskeletal: No Endocrine: Yes Diabetes, Non-Insulin dep HEENT: No Hearing Impairment: Hard of Hearing Cancer: No Psychosocial: Yes Anxiety Integumentary: No Psoriasis Blood Disorders: No Adverse Reaction/Blood Tranf: No Family Medical History No Pertinent Family Hx Physical Exam Vital Signs Vital Signs - First Documented 07/29/20 12:38 Temp 36.5 Pulse 93 Resp 18 B/P (MAP) 145/86 (105) O2 Delivery Room Air Capillary Refill : Less Than 3 Seconds Height, Weight, BMI Height: 5'11.00" Weight: 275lbs. 6.0oz. 124.128528kr; 33.00 BMI Method:Stated Progress/Results/Core Measures Results/Orders Lab Results Laboratory Tests Test 07/29/20 12:51 07/29/20 13:35 Range/Units White Blood Count 12.0 H 4.3-11.0 10^3/uL Red Blood Count 4.97 4.30-5.52 10^6/uL Hemoglobin 14.3 13.3-17.7 g/dL Hematocrit 44 40-54 % Mean Corpuscular Volume 88 80-99 fL Mean Corpuscular Hemoglobin 29 25-34 pg Mean Corpuscular Hemoglobin Concent 33 32-36 g/dL Red Cell Distribution Width 13.9 10.0-14.5 % Platelet Count 292 130-400 10^3/uL Mean Platelet Volume 11.0 9.0-12.2 fL Immature Granulocyte % (Auto) 0 % Neutrophils (%) (Auto) 67 42-75 % Lymphocytes (%) (Auto) 25 12-44 % Monocytes (%) (Auto) 5 0-12 % Eosinophils (%) (Auto) 1 0-10 % Basophils (%) (Auto) 1 0-10 % Neutrophils # (Auto) 8.0 H 1.8-7.8 10^3/uL Lymphocytes # (Auto) 3.0 1.0-4.0 10^3/uL Monocytes # (Auto) 0.6 0.0-1.0 10^3/uL Eosinophils # (Auto) 0.2 0.0-0.3 10^3/uL Basophils # (Auto) 0.1 0.0-0.1 10^3/uL Immature Granulocyte # (Auto) 0.0 0.0-0.1 10^3/uL Sodium Level 139 135-145 MMOL/L Potassium Level 3.9 3.6-5.0 MMOL/L Chloride Level 104 98-107 MMOL/L Carbon Dioxide Level 24 21-32 MMOL/L Anion Gap 11 5-14 MMOL/L Blood Urea Nitrogen 10 7-18 MG/DL Creatinine 0.86 0.60-1.30 MG/DL Estimat Glomerular Filtration Rate > 60 BUN/Creatinine Ratio 12 Glucose Level 146 H 70-105 MG/DL Calcium Level 9.3 8.5-10.1 MG/DL Corrected Calcium 9.1 8.5-10.1 MG/DL Total Bilirubin 0.5 0.1-1.0 MG/DL Aspartate Amino Transf (AST/SGOT) 22 5-34 U/L Alanine Aminotransferase (ALT/SGPT) 20 0-55 U/L Alkaline Phosphatase 71 40-136 U/L Troponin I < 0.028 <0.028 NG/ML Total Protein 7.5 6.4-8.2 GM/DL Albumin 4.3 3.2-4.5 GM/DL Urine Color YELLOW Urine Clarity CLEAR Urine pH 6.5 5-9 Urine Specific Plummer 1.010 L 1.016-1.022 Urine Protein NEGATIVE NEGATIVE Urine Glucose (UA) NEGATIVE NEGATIVE Urine Ketones NEGATIVE NEGATIVE Urine Nitrite NEGATIVE NEGATIVE Urine Bilirubin NEGATIVE NEGATIVE Urine Urobilinogen 0.2 < = 1.0 MG/DL Urine Leukocyte Esterase NEGATIVE NEGATIVE Urine RBC (Auto) NEGATIVE NEGATIVE Urine RBC NONE /HPF Urine WBC RARE /HPF Urine Crystals PRESENT H /LPF Urine Amorphous Sediment FEW ROSSI URATES H /LPF Urine Bacteria TRACE /HPF Urine Casts NONE /LPF Urine Mucus MODERATE H /LPF Urine Culture Indicated NO My Orders Orders - 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 MCFARLAND 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 Cbc With Automated Diff (07/29/20 12:46) Comprehensive Metabolic Panel (07/29/20 12:46) Ua Culture If Indicated (07/29/20 12:46) Ed Iv/Invasive Line Start (07/29/20 12:46) Ekg Tracing (07/29/20 12:46) Troponin I (07/29/20 12:46) Chest 1 View, Ap/Pa Only (07/29/20 12:46) Ns Iv 1000 Ml (Sodium Chloride 0.9%) (07/29/20 13:00) Lorazepam Injection (Ativan Injection) (07/29/20 13:00) Medications Given in ED Current Medications Medications Dose Ordered Sig/Katherine Route Start Time Stop Time Status Last Admin Dose Admin Lorazepam 0.5 mg ONCE PRN IVP 07/29/20 13:00 07/29/20 12:56 0.5 MG Vital Signs/I&O 07/29/20 12:38 Temp 36.5 Pulse 93 Resp 18 B/P (MAP) 145/86 (105) O2 Delivery Room Air Blood Pressure Mean: 105 Departure Communication (Admissions) 1416-feeling much better much more lax heart rate down to 50s. He also has a bad tooth that he would like something stronger than Tylenol for it Impression Primary Impression: Anxiety Disposition: 01 HOME, SELF-CARE Condition: Improved Departure-Patient Inst. Decision time for Depature: 12:53 Referrals: [facility]/K (PCP/Family) Primary Care Physician Patient Instructions: Chest Pain (DC) Scripts Tramadol HCl (Ultram) 50 Mg Tablet 50 MG PO Q6H PRN for PAIN-MODERATE (5-7), #10 TAB Prov: AFSHIN MCFARLAND APRN 07/29/20 AFSHIN MCFARLAND APRN July 29, 2020 12:53
[2020-07-29] MEDS ORDERED: NS IV 1000 ML 1,000 ML IV SCH (13:00)
[2020-07-29] MEDS ORDERED: LORazepam INJ 2 MG/ML (ATIVAN) VIAL IVP PRN (13:00)
[2020-07-29 13:02] LABS: BASOPHILS # (AUTO) 0.1 10^3/uL (0.0-0.1); BASOPHILS % (AUTO) 1 % (0-10); EOSINOPHILS # (AUTO) 0.2 10^3/uL (0.0-0.3); EOSINOPHILS % (AUTO) 1 % (0-10); HEMATOCRIT 44 % (40-54); HEMOGLOBIN 14.3 g/dL (13.3-17.7); LYMPHOCYTES % (AUTO) 25 % (12-44); MEAN CORPUSCULAR HEMOGLOBIN 29 pg (25-34); MEAN CORPUSCULAR HGB CONC 33 g/dL (32-36); MEAN CORPUSCULAR VOLUME 88 fL (80-99); MONOCYTES # (AUTO) 0.6 10^3/uL (0.0-1.0); MONOCYTES % (AUTO) 5 % (0-12); NEUTROPHILS % (AUTO) 67 % (42-75); PLATELET COUNT 292 10^3/uL (130-400)
[2020-07-29 13:12] LABS: ALBUMIN 4.3 GM/DL (3.2-4.5); CHLORIDE 104 MMOL/L (98-107); POTASSIUM 3.9 MMOL/L (3.6-5.0); SODIUM 139 MMOL/L (135-145)
[2020-07-29 13:14] LABS: CALCIUM 9.3 MG/DL (8.5-10.1)
[2020-07-29 13:15] LABS: GLUCOSE 146 MG/DL (70-105); TOTAL PROTEIN 7.5 GM/DL (6.4-8.2)
[2020-07-29 13:16] LABS: CARBON DIOXIDE 24 MMOL/L (21-32)
[2020-07-29 13:17] LABS: BILIRUBIN,TOTAL 0.5 MG/DL (0.1-1.0)
[2020-07-29 13:18] LABS: ALKALINE PHOSPHATASE 71 U/L (40-136); CREATININE SERUM 0.86 MG/DL (0.60-1.30); GFR ESTIMATED > 60
[2020-07-29 13:19] LABS: BUN/CREATININE RATIO 12
[2020-07-29 13:21] LABS: ALANINE AMINOTRANSFERASE 20 U/L (0-55)
--- NOTE | 2020-07-29 13:38 | Diagnostic Imaging Report ---
INDICATION: Palpitations. TIME OF EXAM: 1:01 PM. COMPARISON: 06/30/2019. FINDINGS: The heart size is normal. The pulmonary vascularity is unremarkable. The lungs are clear. No infiltrate, effusion, or pneumothorax is detected. IMPRESSION: No acute cardiopulmonary process is detected. Dictated by: Dictated on workstation # [id number]
[2020-07-29 13:42] LABS: BILIRUBIN,URINE NEGATIVE (NEGATIVE); CLARITY,URINE CLEAR; COLOR,URINE YELLOW; GLUCOSE, URINE (UA) NEGATIVE (NEGATIVE); KETONES,URINE NEGATIVE (NEGATIVE); LEUKOCYTE ESTERASE ,URINE NEGATIVE (NEGATIVE); NITRITE,URINE NEGATIVE (NEGATIVE); PH,URINE 6.5 (5-9); PROTEIN,URINE NEGATIVE (NEGATIVE)
[2020-07-29 14:07] LABS: AMORPHOUS SEDIMENT,UR FEW AMOR URATES /LPF; BACTERIA,URINE TRACE /HPF; WBC,URINE RARE /HPF
[2020-07-29 14:18] VITALS: BP 131/68
[2020-07-29] MEDS ORDERED: TRAM-42 PO (14:18)
== END 2020-07-29 14:18 | disposition home or self-care (01) ==
LOC: EDUNIT# 12:33 → ER 12:35
DX: F41.9 Anxiety disorder, unspecified (principal); I10 Essential (primary) hypertension; E11.9 Type 2 diabetes mellitus without complications; J45.909 Unspecified asthma, uncomplicated; E78.00 Pure hypercholesterolemia, unspecified; Z87.891 Personal history of nicotine dependence; Z79.899 Other long term (current) drug therapy
CPT/HCPCS: 36415; 71045; 80053; 81000; 84484; 85025; 93005

== ENCOUNTER 2020-12-26 21:34 | Emergency (ER) | payer SELFPAY ==
[~2020-12-26 21:34] MED LIST changes: -SULF1TAB35 PO; +SULF1TAB38 PO; +TRAM-42 PO
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
[2020-12-26 22:03] VITALS: BP 159/100
== END 2020-12-26 22:04 | disposition home or self-care (01) ==
LOC: EDUNIT# 21:34 → ER FS 21:35
DX: S43.402A Unspecified sprain of left shoulder joint, initial encounter (principal); J45.909 Unspecified asthma, uncomplicated; I10 Essential (primary) hypertension; E78.00 Pure hypercholesterolemia, unspecified; F41.9 Anxiety disorder, unspecified; E11.9 Type 2 diabetes mellitus without complications; Z79.899 Other long term (current) drug therapy; V89.2XXA Person injured in unspecified motor-vehicle accident, traffic, initial encounter
CPT/HCPCS: 73030

== ENCOUNTER 2021-08-03 08:08 | Emergency (ER) | payer SELFPAY ==
[~2021-08-03] VITALS: Ht 177 cm; Wt 127.0 kg
--- NOTE | 2021-08-03 08:30 | ED General ---
General Chief Complaint: Cough/Cold/Flu Symptoms Stated Complaint: [id number] - CHILLS - N/V - ABD PAIN Source of Information: Patient Exam Limitations: No Limitations History of Present Illness Date Seen by Provider: August 03, 2021 Time Seen by Provider: 08:18 Initial Comments Patient is a 35-year-old male who presents to the emergency department today with a chief complaint of 4 days of generalized malaise, nausea, vomiting, diarrhea, nasal congestion, a little chest "tightness" and cough. Symptoms started Tuesday of last week. He had nausea vomiting and diarrhea that slowly improved over the weekend. His diarrhea came back this morning and the cough was more severe this morning. He is not sleeping very well. He relates a fever to 100.5 and chills and sweats. He has not taken Tylenol since this time yesterday however. He smokes marijuana daily, no cigarettes. He is a diabetic and has a history of hypertension. His mom had a history of significant coronary artery disease with bypass in her mid 30s. Patient states he has had a stress test but its been about 2 years ago. He follows at [facility]. He also complains of a mild "tightness" in the right upper quadrant of his abdomen. He has had previous cholecystectomy. This specific discomfort preexisted his current symptoms. Sick contacts at home, his girlfriend and son had the symptoms last week as well. His boss was positive for COVID about 2 weeks ago. The patient is unvaccinated. All other review of systems reviewed and negative except as stated. Timing/Duration: 3-4 Days Severity: Moderate Associated Systoms: Diaphoresis, Fever/Chills, Nausea/Vomiting Allergies and Home Medications Allergies Coded Allergies: Penicillins (Verified Allergy, Unknown, 03/12/12) Patient Home Medication List Home Medication List Reviewed: Yes Atorvastatin Calcium (Atorvastatin Calcium) 20 Mg Tablet, 20 MG PO DAILY Prescribed by: BERTA MCMILLAN on 09/09/18 1401 Docusate Sodium (Colace) 100 Mg Capsule, 100 MG PO BID Prescribed by: AFSHIN MCFARLAND on 06/20/20 1149 Escitalopram Oxalate (Lexapro) 20 Mg Tablet, 20 MG PO, (Reported) Entered as Reported by: ELIU HENRY on 05/17/15 1714 Hydrocodone/Acetaminophen (Hydrocodone-Acetamin 5-325 mg) 1 Each Tablet, 1 TAB PO Q4H PRN for PAIN-MODERATE (5-7) Prescribed by: AFSHIN MCFARLAND on 06/20/20 1150 Hydroxyzine HCl (Hydroxyzine HCl) 25 Mg Tablet, 25 MG PO, (Reported) Entered as Reported by: ELIU HENRY on 05/17/15 1714 Lidocaine (Lidocaine) 15 Gm Cream..g., 1 GM TP TID PRN for PAIN-MILD (1-4) Prescribed by: AFSHIN MCFARLAND on 06/20/20 1149 Lisinopril (Lisinopril) 20 Mg Tablet, 20 MG PO DAILY, (Reported) Entered as Reported by: ELIU HENRY on 05/17/15 171 Metoprolol Succinate (Toprol Xl) 50 Mg Tab.er.24h, 50 MG PO DAILY, (Reported) Entered as Reported by: ELIU HENRY on 05/17/15 171 Ondansetron (Ondansetron Odt) 4 Mg Tab.rapdis, 4 MG PO Q8H PRN for nausea Prescribed by: OZZIE BUTLER on 08/03/21 0948 Sucralfate (Carafate) 1 Gm Tablet, 1 GM PO QID Prescribed by: ROSE VILLALBA MD on 01/08/19 0742 Tramadol HCl (Tramadol HCl) 50 Mg Tablet, 50 MG PO Q4H PRN for PAIN Prescribed by: LULU HAAS on 05/17/15 1824 Tramadol HCl (Ultram) 50 Mg Tablet, 50 MG PO Q6H PRN for PAIN-MODERATE (5-7) Prescribed by: AFSHIN MCFARLAND on 07/29/20 1419 Review of Systems Review of Systems Constitutional: see HPI EENTM: no symptoms reported Respiratory: no symptoms reported, cough Cardiovascular: chest pain ("tightness") Gastrointestinal: diarrhea, other (occasional blood in stool - patient relates history of anal fissure) Genitourinary: no symptoms reported Musculoskeletal: no symptoms reported Skin: no symptoms reported Psychiatric/Neurological: No Symptoms Reported All Other Systems Reviewed Negative Unless Noted: Yes Past Icfkgsu-Ddmnjj-Iymntj Hx Immunizations Up To Date Tetanus Booster (TDap): Less than 5yrs Seasonal Allergies Seasonal Allergies: No Past Medical History Surgeries: Yes Gallbladder Respiratory: Yes Asthma Cardiac: Yes High Cholesterol, Hypertension Neurological: No Reproductive Disorders: No Sexually Transmitted Disease: No HIV/AIDS: No Genitourinary: No Gastrointestinal: Yes Hiatal Hernia Musculoskeletal: No Endocrine: Yes Diabetes, Non-Insulin dep HEENT: No Hearing Impairment: Hard of Hearing Cancer: No Psychosocial: Yes Anxiety Integumentary: No Psoriasis Blood Disorders: No Adverse Reaction/Blood Tranf: No Family Medical History No Pertinent Family Hx Physical Exam Vital Signs Vital Signs - First Documented 08/03/21 08:18 Temp 36.6 Pulse 73 Resp 14 B/P (MAP) 135/99 (111) Pulse Ox 99 Capillary Refill : Height, Weight, BMI Height: 5'11.00" Weight: 275lbs. 6.0oz. 124.085290fb; 33.00 BMI Method:Stated General Appearance: No Apparent Distress, WD/WN Eyes: Bilateral Eye Normal Inspection, Bilateral Eye PERRL, Bilateral Eye EOMI HEENT: PERRL/EOMI, Pharynx Normal, Moist Mucous Membranes Neck: Full Range of Motion, Normal Inspection, Non Tender, Supple Respiratory: Lungs Clear, Normal Breath Sounds, No Accessory Muscle Use, No Respiratory Distress Cardiovascular: Regular Rate, Rhythm, Normal Peripheral Pulses Gastrointestinal: Normal Bowel Sounds, Soft; No Distended, No Guarding, No Rebound; Tenderness (mild tenderness LLQ and RUQ) Extremity: Normal Capillary Refill, Normal Inspection, Normal Range of Motion, Non Tender, No Calf Tenderness, No Pedal Edema Neurologic/Psychiatric: Alert, Oriented x3, No Motor/Sensory Deficits, Normal Mood/Affect, prefitter II-XII Norm as Tested Skin: Normal Color, Warm/Dry, Tattoos/Piercings Progress/Results/Core Measures Suspected Sepsis SIRS Temperature: Pulse: Respiratory Rate: Laboratory Tests 08/03/21 08:36: White Blood Count 5.0 Blood Pressure / Mean: Laboratory Tests 08/03/21 08:36: Creatinine 0.86, Platelet Count 213 Results/Orders Lab Results Laboratory Tests Test 08/03/21 08:27 08/03/21 08:36 08/03/21 08:37 Range/Units Influenza Type A (RT-PCR) Not Detected Not Detecte Influenza Type B (RT-PCR) Not Detected Not Detecte SARS-CoV-2 RNA (RT-PCR) Detected H Not Detecte White Blood Count 5.0 4.3-11.0 10^3/uL Red Blood Count 5.15 4.30-5.52 10^6/uL Hemoglobin 14.9 13.3-17.7 g/dL Hematocrit 44 40-54 % Mean Corpuscular Volume 86 80-99 fL Mean Corpuscular Hemoglobin 29 25-34 pg Mean Corpuscular Hemoglobin Concent 34 32-36 g/dL Red Cell Distribution Width 13.0 10.0-14.5 % Platelet Count 213 130-400 10^3/uL Mean Platelet Volume 11.6 9.0-12.2 fL Immature Granulocyte % (Auto) 0 % Neutrophils (%) (Auto) 55 42-75 % Lymphocytes (%) (Auto) 30 12-44 % Monocytes (%) (Auto) 13 H 0-12 % Eosinophils (%) (Auto) 1 0-10 % Basophils (%) (Auto) 1 0-10 % Neutrophils # (Auto) 2.7 1.8-7.8 10^3/uL Lymphocytes # (Auto) 1.5 1.0-4.0 10^3/uL Monocytes # (Auto) 0.7 0.0-1.0 10^3/uL Eosinophils # (Auto) 0.1 0.0-0.3 10^3/uL Basophils # (Auto) 0.0 0.0-0.1 10^3/uL Immature Granulocyte # (Auto) 0.0 0.0-0.1 10^3/uL Sodium Level 138 135-145 MMOL/L Potassium Level 3.6 3.6-5.0 MMOL/L Chloride Level 107 98-107 MMOL/L Carbon Dioxide Level 18 L 21-32 MMOL/L Anion Gap 13 5-14 MMOL/L Blood Urea Nitrogen 9 7-18 MG/DL Creatinine 0.86 0.60-1.30 MG/DL Estimat Glomerular Filtration Rate 117 BUN/Creatinine Ratio 10 Glucose Level 142 H 70-105 MG/DL Calcium Level 8.9 8.5-10.1 MG/DL Glucometer 139 H 70-110 MG/DL My Orders Orders - OZZIE BUTLER MD Ekg Tracing (08/03/21 08:24) Ed Iv/Invasive Line Start (08/03/21 08:24) Cbc With Automated Diff (08/03/21 08:24) Basic Metabolic Panel (08/03/21 08:24) Covid 19 Inhouse Test (08/03/21 08:24) Influenza A And B By Pcr (08/03/21 08:24) Isolation Central Supply Req (08/03/21 08:24) Vital Signs/I&O 08/03/21 08/03/21 08:18 10:00 Temp 36.6 Pulse 73 76 Resp 14 18 B/P (MAP) 135/99 (111) 130/87 Pulse Ox 99 99 Capillary Refill : Progress Note : Time: 09:45 Progress Note Patient seen and examined, symptomatology consistent with COVID-19 infection. His test is positive. Other labs are reviewed and are within normal limits. The patient has stable vital signs, he is not tachycardic he is not hypo or hypertensive. His oxygen saturations are 97 to 98% on room air. He exhibits no increased work of breathing. He does not meet sepsis criteria. His EKG is unremarkable. I do not suspect any acute coronary syndrome at this time even in spite of his history of diabetes, hypertension and family history. Patient is counseled to quit quit smoking marijuana. He is advised to self quarantine for 5 days with a mask at home and then 5 days with a mask out and about. He is educated about new current antiviral therapies and declines any prescriptions fo r this. I gave him strict return precautions, to include worsening shortness of breath nausea vomiting, inability to hold down his medications that he should return to the emergency room for reevaluation. He is comfortable with this plan of care. We will send him a prescription for Zofran to his pharmacy. All questions are sought and answered. Patient is stable for discharge. ECG Initial ECG Impression Date: August 03, 2021 Initial ECG Impression Time: 08:31 Initial ECG Rate: 59 Initial ECG Rhythm: S.Bj Initial ECG Intervals WA 169 QRS 105 QTc 389 Comment Sinus bradycardia with no ST segment elevation or depression. Normal intervals. No ectopy. No acute findingsinterpreted by me Departure Impression Primary Impression: COVID-19 Disposition: 01 HOME, SELF-CARE Condition: Stable Departure-Patient Inst. Decision time for Depature: 09:47 Referrals: [facility] (PCP/Family) Primary Care Physician Patient Instructions: COVID-19 ED Add. Discharge Instructions: Drink lots of fluids to stay well-hydrated. I have sent a prescription for Zofran, a nausea medication that will help you keep fluids down. You can take this every 8 hours as needed. Jtae-kay-izgrsws cough and decongestant medication such as Robitussin will be helpful. Ibuprofen 600 mg which is 3 tablets of generic ibuprofen, Advil/Motrin every 6 hours with food as needed for pain body aches. Return to the emergency department if you experience worsening shortness of breath or cough, feelings of lightheadedness or near passing out, excessive vomiting or any other emergent concerning symptoms. Continue to take your routine daily medications as previously prescribed. Scripts Ondansetron (Ondansetron Odt) 4 Mg Tab.rapdis 4 MG PO Q8H PRN for nausea, #20 TAB Prov: OZZIE BUTLER MD 08/03/21 Copy Copies To 1: ABHIJIT LORA KATHRYN M MD August 03, 2021 08:30
[2021-08-03 08:45] LABS: BASOPHILS % (AUTO) 1 % (0-10); EOSINOPHILS # (AUTO) 0.1 10^3/uL (0.0-0.3); EOSINOPHILS % (AUTO) 1 % (0-10); HEMATOCRIT 44 % (40-54); HEMOGLOBIN 14.9 g/dL (13.3-17.7); LYMPHOCYTES # (AUTO) 1.5 10^3/uL (1.0-4.0); LYMPHOCYTES % (AUTO) 30 % (12-44); MEAN CORPUSCULAR HEMOGLOBIN 29 pg (25-34); MEAN CORPUSCULAR HGB CONC 34 g/dL (32-36); MEAN CORPUSCULAR VOLUME 86 fL (80-99); MEAN PLATELET VOLUME 11.6 fL (9.0-12.2); MONOCYTES # (AUTO) 0.7 10^3/uL (0.0-1.0); MONOCYTES % (AUTO) 13 % (0-12); NEUTROPHILS # (AUTO) 2.7 10^3/uL (1.8-7.8); NEUTROPHILS % (AUTO) 55 % (42-75); PLATELET COUNT 213 10^3/uL (130-400)
[2021-08-03 09:00] LABS: POTASSIUM 3.6 MMOL/L (3.6-5.0)
[2021-08-03 09:01] LABS: CALCIUM 8.9 MG/DL (8.5-10.1)
[2021-08-03 09:05] LABS: CREATININE SERUM 0.86 MG/DL (0.60-1.30)
[2021-08-03] MEDS ORDERED: ONDA4TAB11 PO (09:48)
[2021-08-03 10:00] VITALS: BP 130/87
== END 2021-08-03 10:00 | disposition home or self-care (01) ==
LOC: EDUNIT# 08:08 → ER 08:09
DX: U07.1 COVID-19 (principal); R00.1 Bradycardia, unspecified
CPT/HCPCS: 36415; 80048; 82947; 85025; 87636; 93005

== ENCOUNTER 2021-08-05 12:04 | Emergency (ER) | payer SELFPAY ==
[~2021-08-05] VITALS: Ht 177 cm; Wt 115.0 kg
[~2021-08-05 12:04] MED LIST changes: +ONDA4TAB11 PO
--- NOTE | 2021-08-05 13:11 | ED Chest Pain ---
General Chief Complaint: COVID19 Suspect/Confirmed Stated Complaint: COVID +, BODY SHAKES, SOB, SEEN 08/03 Nursing Triage Note: ARRIVED VIA AMB TO ROOM 06. WAS DIAGONSED WITH COVID 2 DAYS AGO TODAY IS HAVING CHEST PRESSURE WITH SOA. Source: patient Exam Limitations: no limitations History of Present Illness Date Seen by Provider: Aug 05, 2021 Time Seen by Provider: 12:58 Initial Comments Patient is a 35-year-old male who presents to the emergency department today with a chief complaint of chest discomfort that he currently rates at a 4 or a 5. He states it started a little over an hour before he got here. He was laying down at the time. He felt a little short of breath and broke out into a clammy sweat. It did not radiate. Nothing is made it any better or any worse. He is a little nauseous. He does have a history of hypertension and diabetes. He has had 2 prior stress test with no cardiac cath. He does have a positive family history, his mother had a heart attack and bypass in her mid 30s. Patient was diagnosed with COVID-19 by me on August 03. He states he still having some diarrhea and no appetite. He is not really drinking much. No productive cough currently. No earache sore throat or runny nose. No problems with urination. No swelling in his legs. All other review of systems reviewed and negative except as stated. Timing/Duration: 1-3 hours Severity/Quality: moderate, other ("discomfort") Location: central Radiation: no radiation Activities at Onset: rest Prior CP/Workup: stress test ASA po [employer]PER[employer]ODUCTION: No NTG SL [employer]: No Associated Symptoms: diaphoresis, nausea/vomiting, shortness of breath, weakness (decreased appetite) Allergies and Home Medications Allergies Coded Allergies: Penicillins (Verified Allergy, Unknown, 03/12/12) Patient Home Medication List Home Medication List Reviewed: Yes Atorvastatin Calcium (Atorvastatin Calcium) 20 Mg Tablet, 20 MG PO DAILY Prescribed by: BERTA MCMILLAN on 09/09/18 1401 Docusate Sodium (Colace) 100 Mg Capsule, 100 MG PO BID Prescribed by: AFSHIN MCFARLAND on 06/20/20 1149 Escitalopram Oxalate (Lexapro) 20 Mg Tablet, 20 MG PO, (Reported) Entered as Reported by: ELIU HENRY on 05/17/15 1714 Hydrocodone/Acetaminophen (Hydrocodone-Acetamin 5-325 mg) 1 Each Tablet, 1 TAB PO Q4H PRN for PAIN-MODERATE (5-7) Prescribed by: AFSHIN MCFARLAND on 06/20/20 1150 Hydroxyzine HCl (Hydroxyzine HCl) 25 Mg Tablet, 25 MG PO, (Reported) Entered as Reported by: ELIU HENRY on 05/17/15 1714 Lidocaine (Lidocaine) 15 Gm Cream..g., 1 GM TP TID PRN for PAIN-MILD (1-4) Prescribed by: AFSHIN MCFARLAND on 06/20/20 1149 Lisinopril (Lisinopril) 20 Mg Tablet, 20 MG PO DAILY, (Reported) Entered as Reported by: ELIU HENRY on 05/17/15 1714 Metoprolol Succinate (Toprol Xl) 50 Mg Tab.er.24h, 50 MG PO DAILY, (Reported) Entered as Reported by: ELIU HENRY on 05/17/15 1714 Ondansetron (Ondansetron Odt) 4 Mg Tab.rapdis, 4 MG PO Q8H PRN for nausea Prescribed by: OZZIE BUTLER on 08/03/21 0948 Sucralfate (Carafate) 1 Gm Tablet, 1 GM PO QID Prescribed by: ROSE VILLALBA MD on 01/08/19 0742 Tramadol HCl (Tramadol HCl) 50 Mg Tablet, 50 MG PO Q4H PRN for PAIN Prescribed by: LULU HAAS on 05/17/15 1824 Tramadol HCl (Ultram) 50 Mg Tablet, 50 MG PO Q6H PRN for PAIN-MODERATE (5-7) Prescribed by: AFSHIN MCFARLAND on 07/29/20 1419 Review of Systems Review of Systems Constitutional: see HPI, diaphoresis, malaise EENTM: No Symptoms Reported Respiratory: Shortness of Air Cardiovascular: Chest Pain Gastrointestinal: Nausea Genitourinary: No Symptoms Reported Musculoskeletal: no symptoms reported Skin: no symptoms reported Psychiatric/Neurological: No Symptoms Reported All Other Systems Reviewed Negative Unless Noted: Yes Past Igabccn-Dphwhs-Sdcrfv Hx Immunizations Up To Date Tetanus Booster (TDap): Less than 5yrs Seasonal Allergies Seasonal Allergies: No Past Medical History Surgery/Hospitalization HX: pmh: dm2, htn Surgeries: Yes Gallbladder Respiratory: Yes Asthma Cardiac: Yes High Cholesterol, Hypertension Neurological: No Reproductive Disorders: No Sexually Transmitted Disease: No HIV/AIDS: No Genitourinary: No Gastrointestinal: Yes Hiatal Hernia Musculoskeletal: No Endocrine: Yes Diabetes, Non-Insulin dep HEENT: No Hearing Impairment: Hard of Hearing Cancer: No Psychosocial: Yes Anxiety Integumentary: No Psoriasis Blood Disorders: No Adverse Reaction/Blood Tranf: No Family Medical History No Pertinent Family Hx Physical Exam Vital Signs Vital Signs - First Documented 08/05/21 12:35 Temp 36.2 Pulse 80 Resp 16 B/P (MAP) 169/107 (127) Pulse Ox 97 O2 Delivery Room Air Capillary Refill : Less Than 3 Seconds Height, Weight, BMI Height: 5'11.00" Weight: 275lbs. 6.0oz. 124.611936ma; 36.00 BMI Method:Stated General Appearance: No Apparent Distress, WD/WN HEENT: PERRL/EOMI Neck: Normal Inspection Respiratory: Lungs Clear, Normal Breath Sounds, No Accessory Muscle Use, No Respiratory Distress, Other (room air sats 98%; no distress) Cardiovascular: Regular Rate, Rhythm (HR 80) Gastrointestinal: Normal Bowel Sounds, Non Tender, Soft Extremity: Normal Inspection, Normal Range of Motion, Non Tender, No Calf Tenderness, No Pedal Edema Neurologic/Psychiatric: Alert, Oriented x3, No Motor/Sensory Deficits, Normal Mood/Affect, lockstitch lining setter II-XII Norm as Tested Skin: Normal Color, Warm/Dry Progress/Results/Core Measures Results/Orders Lab Results Laboratory Tests Test 08/05/21 12:45 Range/Units White Blood Count 5.9 4.3-11.0 10^3/uL Red Blood Count 5.54 H 4.30-5.52 10^6/uL Hemoglobin 15.8 13.3-17.7 g/dL Hematocrit 47 40-54 % Mean Corpuscular Volume 84 80-99 fL Mean Corpuscular Hemoglobin 29 25-34 pg Mean Corpuscular Hemoglobin Concent 34 32-36 g/dL Red Cell Distribution Width 12.5 10.0-14.5 % Platelet Count 242 130-400 10^3/uL Mean Platelet Volume 11.7 9.0-12.2 fL Immature Granulocyte % (Auto) 0 % Neutrophils (%) (Auto) 63 42-75 % Lymphocytes (%) (Auto) 26 12-44 % Monocytes (%) (Auto) 10 0-12 % Eosinophils (%) (Auto) 0 0-10 % Basophils (%) (Auto) 0 0-10 % Neutrophils # (Auto) 3.7 1.8-7.8 10^3/uL Lymphocytes # (Auto) 1.5 1.0-4.0 10^3/uL Monocytes # (Auto) 0.6 0.0-1.0 10^3/uL Eosinophils # (Auto) 0.0 0.0-0.3 10^3/uL Basophils # (Auto) 0.0 0.0-0.1 10^3/uL Immature Granulocyte # (Auto) 0.0 0.0-0.1 10^3/uL Sodium Level 136 135-145 MMOL/L Potassium Level 3.7 3.6-5.0 MMOL/L Chloride Level 105 98-107 MMOL/L Carbon Dioxide Level 16 L 21-32 MMOL/L Anion Gap 15 H 5-14 MMOL/L Blood Urea Nitrogen 9 7-18 MG/DL Creatinine 0.80 0.60-1.30 MG/DL Estimat Glomerular Filtration Rate 119 BUN/Creatinine Ratio 11 Glucose Level 153 H 70-105 MG/DL Calcium Level 9.2 8.5-10.1 MG/DL Troponin I < 0.028 <0.028 NG/ML My Orders Orders - OZZIE BUTLER MD Ekg Tracing (08/05/21 12:44) Ed Iv/Invasive Line Start (08/05/21 13:07) Cbc With Automated Diff (08/05/21 13:07) Basic Metabolic Panel (08/05/21 13:07) Troponin I [place] (08/05/21 13:07) Ketorolac Injection (Toradol Injection) (08/05/21 13:15) Ns Iv 1000 Ml (Sodium Chloride 0.9%) (08/05/21 13:15) Ns Iv 1000 Ml (Sodium Chloride 0.9%) (08/05/21 14:00) Medications Given in ED Current Medications Medications Dose Ordered Sig/Katherine Route Start Time Stop Time Status Last Admin Dose Admin Ketorolac Tromethamine 15 mg ONCE ONCE IVP 08/05/21 13:15 08/05/21 13:16 DC 08/05/21 13:23 15 MG Vital Signs/I&O 08/05/21 12:35 Temp 36.2 Pulse 80 Resp 16 B/P (MAP) 169/107 (127) Pulse Ox 97 O2 Delivery Room Air Blood Pressure Mean: 127 Progress Progress Note : Time: 15:08 Progress Note Reevaluated patient, he is feeling much better has had 1-1/2 L of IV fluids in. No ongoing chest pain, no shortness of breath or cough. His CO2 was 16, I believe he is probably pretty dry. I do not think his chest pain sounded in any way cardiac. I think that 1 set of cardiac enzymes is sufficient to be reassured that he has not had an acute cardiac event. I have reassured the patient and told him to drink lots of fluids and supplement with some diet Gatorade or Pedialyte. He is comfortable with this plan of care. All questions are sought and answered. Initial ECG Impression Date: Aug 05, 2021 Initial ECG Impression Time: 13:00 Initial ECG Rate: 78 Initial ECG Rhythm: Normal Sinus Initial ECG Intervals: Normal Initial ECG Impression: Normal Comment OH interval 175 QRS [address] segment depression or elevation is noted. Patient has no ectopy, interpreted by Departure Impression Primary Impression: Chest pain Qualified Codes: R07.9 - Chest pain, unspecified Additional Impressions: Dehydration COVID-19 Disposition: 01 HOME, SELF-CARE Condition: Stable Departure-Patient Inst. Decision time for Depature: 15:09 Referrals: [facility] (PCP/Family) Primary Care Physician Patient Instructions: Chest Pain That Is Not Caused by the Heart (DC), Dehydration, Adult ED Add. Discharge Instructions: Please try and push your fluids over the next couple of days. Supplement your free water with diet Gatorade or Pedialyte. Be sure and get some activity in throughout the day. Tylenol or ibuprofen as needed for body aches. Follow-up with your primary care provider in a week. If you have any return of chest pain especially while you are exerting yourself that travels into your neck back or down your left arm especially associated with nausea, sweating or shortness of breath, please come back to the emergency room for reevaluation. OZZIE BUTLER MD Aug 05, 2021 13:11
[2021-08-05] MEDS ORDERED: NS IV 1000 ML 1,000 ML IV SCH ×2 (13:15→14:00)
[2021-08-05] MEDS ORDERED: KETOROLAC 30 MG/ML VIAL IVP ONE (13:15)
[2021-08-05 13:21] LABS: BASOPHILS % (AUTO) 0 % (0-10); EOSINOPHILS % (AUTO) 0 % (0-10); HEMATOCRIT 47 % (40-54); HEMOGLOBIN 15.8 g/dL (13.3-17.7); LYMPHOCYTES # (AUTO) 1.5 10^3/uL (1.0-4.0); LYMPHOCYTES % (AUTO) 26 % (12-44); MEAN CORPUSCULAR HEMOGLOBIN 29 pg (25-34); MEAN CORPUSCULAR HGB CONC 34 g/dL (32-36); MEAN CORPUSCULAR VOLUME 84 fL (80-99); MEAN PLATELET VOLUME 11.7 fL (9.0-12.2); MONOCYTES # (AUTO) 0.6 10^3/uL (0.0-1.0); MONOCYTES % (AUTO) 10 % (0-12); NEUTROPHILS # (AUTO) 3.7 10^3/uL (1.8-7.8); NEUTROPHILS % (AUTO) 63 % (42-75); PLATELET COUNT 242 10^3/uL (130-400); WHITE BLOOD COUNT 5.9 10^3/uL (4.3-11.0)
[2021-08-05 13:23] LABS: CHLORIDE 105 MMOL/L (98-107); POTASSIUM 3.7 MMOL/L (3.6-5.0); SODIUM 136 MMOL/L (135-145)
[2021-08-05 13:24] LABS: CALCIUM 9.2 MG/DL (8.5-10.1); GLUCOSE 153 MG/DL (70-105)
[2021-08-05 13:26] LABS: CARBON DIOXIDE 16 MMOL/L (21-32)
[2021-08-05 13:28] LABS: GFR ESTIMATED 119
[2021-08-05 13:29] LABS: BUN/CREATININE RATIO 11
[2021-08-05 15:20] VITALS: BP 165/93
== END 2021-08-05 15:20 | disposition home or self-care (01) ==
LOC: EDUNIT# 12:04 → ER 12:05
DX: U07.1 COVID-19 (principal); E86.0 Dehydration; Z73.0 Burn-out
CPT/HCPCS: 36415; 80048; 84484; 85025; 93005